=== PATIENT | female | born 1950 | race Caucasian/White ===

== ENCOUNTER 2016-07-03 13:44 | Inpatient (IN) | payer MEDICARE, OTHER ==
[~2016-07-03] VITALS: Ht 167.6 cm; Wt 87.5 kg
[~2016-07-03 13:44] MED LIST: 0.92DISP2 IV; CEFA2PIG3 IVPB; DIAZ5TAB4 IV; DOCU-30 PO; ENOX40SY4 SQ; GABA100C PO; GUAI5LIQ3 PO; HYDR20VI3 IV; IBUP-1222 PO; LABE5VIA13 IVPush; LACT1CAP24 PO; LISI-167 PO; METH750T2 PO; MORP15TA3 PO; OLAN5TAB3 PO; ONDA2VIA2 IVPush; OXYC5CAP4 PO; POLY17PO5 PO; SENN-31 PO; TRAM50TA2 PO; [UNRECOGNIZED DRUG - CODE] IVPush
[2016-07-03] MEDS ORDERED: SODIUM CHLORIDE FLUSH 10ML SYR IVF ONE (14:00)
[2016-07-03] MEDS ORDERED: ACET325T26 PO (14:02)
[2016-07-03] MEDS ORDERED: AMLO10TA2 PO (14:02)
[2016-07-03] MEDS ORDERED: META800T PO (14:02)
[2016-07-03] MEDS ORDERED: OXYC5TAB3 PO (14:02)
[2016-07-03] MEDS ORDERED: OLAN10TA9 PO (14:02)
[2016-07-03] MEDS ORDERED: CLON0.1T PO (14:02)
[2016-07-03] MEDS ORDERED: GABA100C8 PO (14:02)
[2016-07-03] MEDS ORDERED: LISI-170 PO (14:02)
[2016-07-03] MEDS ORDERED: CEPH-376 PO (14:02)
[2016-07-03] MEDS ORDERED: MORP15TA39 PO (14:02)
[2016-07-03 15:00] LABS: BLOOD UREA NITROGEN 10 mg/dL (7-18)
[2016-07-03] MEDS ORDERED: SODIUM CHLORIDE FLUSH 10ML SYR IVF PRN (19:00)
[2016-07-03] MEDS ORDERED: LABETALOL 5MG/ML, 20ML IV PRN (19:30)
[2016-07-03] MEDS ORDERED: BISACODYL 10 MG SUPP PR PRN (19:30)
[2016-07-03] MEDS ORDERED: ONDANSETRON 2MG/ML, 2ML IVP PRN (19:30)
[2016-07-03] MEDS ORDERED: Metaxalone** 800 MG HOMEMEDPO PRN (19:30)
[2016-07-03] MEDS ORDERED: POLYETHYLENE GLYCOL 17 GM PACKET PO PRN (19:30)
[2016-07-03] MEDS ORDERED: DOCUSATE 100 MG CAPSULE PO PRN (19:30)
[2016-07-03] MEDS ORDERED: LABETALOL 5MG/ML, 20ML ONE (19:59)
[2016-07-03] MEDS ORDERED: POTASSIUM CHLORIDE 20 MEQ TAB.ER.PRT PO ONE (22:00)
[2016-07-03 22:22] VITALS: BP 198/68
[2016-07-03 22:52] VITALS: BP 171/87
[2016-07-03] MEDS: GABAPENTIN 100 MG CAPSULE PO SCH (22:52)
[2016-07-03] MEDS: LISINOPRIL 20 MG TABLET PO SCH (22:53)
[2016-07-03] MEDS: NS + 20MEQ KCL 1,000 ML IV SCH (23:17)
[2016-07-04 02:25] VITALS: BP 114/63
[2016-07-04] MEDS ORDERED: CEFTRIAXONE PMX 1GM/50ML 50 ML IV SCH (04:00)
[2016-07-04 05:25] VITALS: BP 118/64
[2016-07-04 06:09] LABS: ASPARTATE AMINO TRANSFERASE 20 U/L (15-37); BLOOD UREA NITROGEN 15 mg/dL (7-18)
[2016-07-04 07:46] VITALS: BP 103/64
[2016-07-04] MEDS: AMLODIPINE 5 MG TABLET PO SCH (08:12)
[2016-07-04] MEDS: LISINOPRIL 20 MG TABLET PO SCH ×2 (08:13→21:23)
[2016-07-04] MEDS: OLANZAPINE 10 MG TABLET PO SCH (08:24)
[2016-07-04] MEDS: NS + 20MEQ KCL 1,000 ML IV SCH ×2 (08:24→21:23)
[2016-07-04] MEDS: GABAPENTIN 100 MG CAPSULE PO SCH ×3 (08:24→21:25)
[2016-07-04] MEDS: OXYcodone IR 5MG TABLET PO PRN (11:33)
[2016-07-04] MEDS ORDERED: LIDOCAINE 1%, 20ML ONE (13:07)
[2016-07-04 13:10] VITALS: BP 112/67
[2016-07-04] MEDS ORDERED: FENTANYL PF 100 MCG/2ML ONE ×2 (13:19→13:20)
[2016-07-04] MEDS ORDERED: MIDAZOLAM 1 MG/ML, 5ML ONE (13:19)
[2016-07-04] MEDS ORDERED: SODIUM CHLORIDE 0.9%, 500ML IVBOLUS ONE (16:30)
[2016-07-04 18:15] VITALS: BP 178/78
[2016-07-04] MEDS: hydrALAzine 20 MG/ML, 1ML IV PRN (18:20)
[2016-07-04 19:40] LABS: OCCBLD OBC PASS
[2016-07-04 20:03] VITALS: BP 153/78
[2016-07-05 00:57] VITALS: BP 139/78
[2016-07-05 05:43] LABS: BLOOD UREA NITROGEN 15 mg/dL (7-18)
[2016-07-05] MEDS: OXYcodone IR 5MG TABLET PO PRN ×3 (05:44→19:58)
[2016-07-05 06:35] VITALS: BP 172/78
[2016-07-05] MEDS: ACETAMINOPHEN 325 MG TABLET PO PRN ×2 (06:38→14:42)
[2016-07-05] MEDS: NS + 20MEQ KCL 1,000 ML IV SCH (07:00)
[2016-07-05] MEDS: GABAPENTIN 100 MG CAPSULE PO SCH ×3 (08:01→19:58)
[2016-07-05] MEDS: LISINOPRIL 20 MG TABLET PO SCH ×2 (08:01→19:58)
[2016-07-05] MEDS: OLANZAPINE 10 MG TABLET PO SCH (08:01)
[2016-07-05] MEDS: PANTOPRAZOLE 40 MG IV IVPush SCH ×2 (08:01→19:58)
[2016-07-05] MEDS: AMLODIPINE 5 MG TABLET PO SCH (08:01)
[2016-07-05 13:41] VITALS: BP 156/75
[2016-07-05 18:50] VITALS: BP 178/83
[2016-07-06 00:27] VITALS: BP 159/72
[2016-07-06] MEDS: OXYcodone IR 5MG TABLET PO PRN ×4 (01:19→18:34)
[2016-07-06 05:16] LABS: BLOOD UREA NITROGEN 8 mg/dL (7-18)
[2016-07-06 06:35] VITALS: BP 184/93
[2016-07-06] MEDS: LISINOPRIL 20 MG TABLET PO SCH ×2 (07:28→19:35)
[2016-07-06] MEDS: GABAPENTIN 100 MG CAPSULE PO SCH ×3 (07:28→19:35)
[2016-07-06] MEDS: AMLODIPINE 5 MG TABLET PO SCH (07:28)
[2016-07-06] MEDS: OLANZAPINE 10 MG TABLET PO SCH (07:29)
[2016-07-06] MEDS: PANTOPRAZOLE 40 MG IV IVPush SCH ×2 (07:29→19:34)
[2016-07-06 13:25] VITALS: BP 160/76
[2016-07-06 18:51] VITALS: BP 181/70
[2016-07-07 00:59] VITALS: BP 154/71
[2016-07-07] MEDS: OXYcodone IR 5MG TABLET PO PRN ×3 (03:20→17:52)
[2016-07-07] MEDS ORDERED: POTASSIUM CHLORIDE 20 MEQ TAB.ER.PRT PO ONE (07:00)
[2016-07-07 07:40] VITALS: BP 172/77
[2016-07-07] MEDS: PANTOPRAZOLE 40 MG IV IVPush SCH ×2 (08:26→19:54)
[2016-07-07] MEDS: LISINOPRIL 20 MG TABLET PO SCH ×2 (08:27→19:54)
[2016-07-07] MEDS: GABAPENTIN 100 MG CAPSULE PO SCH ×3 (08:27→19:54)
[2016-07-07] MEDS: AMLODIPINE 5 MG TABLET PO SCH (08:27)
[2016-07-07] MEDS: OLANZAPINE 10 MG TABLET PO SCH (11:31)
[2016-07-07 13:37] VITALS: BP 171/79
[2016-07-07 19:43] VITALS: BP 182/73
[2016-07-07] MEDS ORDERED: LABETALOL 20 MG/4 ML IV PRN (19:56)
[2016-07-07 20:34] VITALS: BP 191/78
[2016-07-08 01:52] VITALS: BP 157/74
[2016-07-08 06:24] LABS: ASPARTATE AMINO TRANSFERASE 25 U/L (15-37); BLOOD UREA NITROGEN 12 mg/dL (7-18); C-REACTIVE PROTEIN, QUANT 0.54 mg/dL (0.02-0.49)
[2016-07-08 08:02] VITALS: BP 173/85
[2016-07-08] MEDS: OLANZAPINE 10 MG TABLET PO SCH (08:37)
[2016-07-08] MEDS: LISINOPRIL 20 MG TABLET PO SCH ×2 (08:37→20:50)
[2016-07-08] MEDS: AMLODIPINE 5 MG TABLET PO SCH (08:38)
[2016-07-08] MEDS: PANTOPRAZOLE 40 MG IV IVPush SCH ×2 (08:38→20:50)
[2016-07-08] MEDS: GABAPENTIN 100 MG CAPSULE PO SCH ×3 (08:38→20:50)
[2016-07-08] MEDS: OXYcodone IR 5MG TABLET PO PRN ×3 (08:38→20:50)
[2016-07-08] MEDS: METOPROLOL SUCCINATE 25 MG TAB.ER.24H PO SCH (11:21)
[2016-07-08 11:26] VITALS: BP 132/75
[2016-07-08 13:41] VITALS: BP 132/75
[2016-07-08 14:38] VITALS: BP 140/80
[2016-07-08 19:25] VITALS: BP 145/76
[2016-07-09] MEDS: OXYcodone IR 5MG TABLET PO PRN ×4 (01:28→18:15)
[2016-07-09 01:49] VITALS: BP 123/66
[2016-07-09] MEDS: METOPROLOL SUCCINATE 25 MG TAB.ER.24H PO SCH (06:07)
[2016-07-09 07:10] VITALS: BP 153/83
[2016-07-09] MEDS: OLANZAPINE 10 MG TABLET PO SCH (08:34)
[2016-07-09] MEDS: PANTOPRAZOLE 40 MG IV IVPush SCH ×2 (08:34→20:28)
[2016-07-09] MEDS: GABAPENTIN 100 MG CAPSULE PO SCH ×3 (08:35→20:28)
[2016-07-09] MEDS: LISINOPRIL 20 MG TABLET PO SCH ×2 (08:35→20:29)
[2016-07-09] MEDS: AMLODIPINE 5 MG TABLET PO SCH (08:35)
[2016-07-09 12:32] VITALS: BP 132/68
[2016-07-09 13:01] VITALS: BP 128/80
[2016-07-09 19:03] VITALS: BP 146/74
[2016-07-10] MEDS: SODIUM CHLORIDE 0.9% 1,000 ML IV SCH ×2 (00:21→21:24)
[2016-07-10 02:50] VITALS: BP 142/72
[2016-07-10] MEDS: METOPROLOL SUCCINATE 25 MG TAB.ER.24H PO SCH (05:32)
[2016-07-10 06:46] LABS: BLOOD UREA NITROGEN 18 mg/dL (7-18)
[2016-07-10] MEDS ORDERED: THROMBIN 5,000 UNIT VIAL TP ONE (06:58)
[2016-07-10] MEDS ORDERED: BUPIVACAINE/PF-EPI 0.25% 1:200K ONE (06:58)
[2016-07-10] MEDS ORDERED: BACITRACIN OINT 500U/GM, 15 GM ONE (06:58)
[2016-07-10] MEDS ORDERED: BACITRACIN 50,000 UNIT ONE (06:58)
[2016-07-10] MEDS: PANTOPRAZOLE 40 MG IV IVPush SCH ×2 (07:53→21:06)
[2016-07-10] MEDS: LISINOPRIL 20 MG TABLET PO SCH ×2 (07:59→21:17)
[2016-07-10] MEDS: OLANZAPINE 10 MG TABLET PO SCH (07:59)
[2016-07-10 08:00] VITALS: BP 151/71
[2016-07-10] MEDS: AMLODIPINE 5 MG TABLET PO SCH (08:00)
[2016-07-10] MEDS: GABAPENTIN 100 MG CAPSULE PO SCH ×3 (08:01→21:17)
[2016-07-10] MEDS: OXYcodone IR 5MG TABLET PO PRN (10:08)
[2016-07-10] MEDS ORDERED: FENTANYL PF 250 MCG/5ML ONE (10:55)
[2016-07-10] MEDS ORDERED: MIDAZOLAM 1 MG/ML, 2ML ONE (10:55)
[2016-07-10] MEDS ORDERED: DEXAMETHASONE 4 MG/ML, 1ML ONE (11:27)
[2016-07-10] MEDS ORDERED: EPHEDRINE 50 MG/ML, 1ML ONE (11:27)
[2016-07-10] MEDS ORDERED: CEFAZOLIN 1,000 MG ONE (11:27)
[2016-07-10] MEDS ORDERED: PROPOFOL 10 MG/ML, 20ML ONE (11:27)
[2016-07-10] MEDS ORDERED: ROCURONIUM 10 MG/ML ONE (11:27)
[2016-07-10] MEDS ORDERED: ONDANSETRON 2MG/ML, 2ML ONE (11:27)
[2016-07-10] MEDS ORDERED: PHENYLEPHRINE 10 MG/ML ONE (11:27)
[2016-07-10] MEDS ORDERED: HYDROmorphone 2 MG/ML, 1ML ONE (12:00)
[2016-07-10] MEDS ORDERED: ACETAMINOPHEN 325 MG TABLET PO PRN (13:00)
[2016-07-10] MEDS ORDERED: ONDANSETRON 2MG/ML, 2ML IVPush PRN ×2 (13:00→13:30)
[2016-07-10] MEDS ORDERED: METOCLOPRAMIDE 5 MG/ML, 2ML IV PRN (13:00)
[2016-07-10] MEDS ORDERED: MEPERIDINE/PF 25MG/0.5ML IVPush PRN (13:00)
[2016-07-10] MEDS ORDERED: OXYcodone 5 MG/5 ML ORAL.SOL UDC PO PRN (13:00)
[2016-07-10] MEDS ORDERED: FENTANYL PF 100 MCG/2ML IV PRN (13:00)
[2016-07-10] MEDS ORDERED: PROMETHAZINE 25 MG/ML, 1ML IV PRN (13:00)
[2016-07-10] MEDS ORDERED: hydrALAzine 20 MG/ML, 1ML IV PRN (13:00)
[2016-07-10] MEDS ORDERED: MIDAZOLAM 1 MG/ML, 2ML IV PRN (13:00)
[2016-07-10] MEDS ORDERED: HYDROmorphone 1 MG/ML, 1ML IV PRN (13:00)
[2016-07-10] MEDS ORDERED: LABETALOL 5MG/ML, 20ML IV PRN (13:00)
[2016-07-10] MEDS ORDERED: PHARMACY MAY ADJ FOR RENAL FX MC PRN (13:30)
[2016-07-10] MEDS ORDERED: HYDROmorphone PCA 30 MG/30 ML IV PRN (13:30)
[2016-07-10 15:15] VITALS: BP 161/74
[2016-07-10] MEDS: NS + 20MEQ KCL 1,000 ML IV SCH (17:01)
[2016-07-10] MEDS: NAFCILLIN 2 GM in DEXTROSE 5% 100 ML IV SCH ×2 (17:39→21:06)
[2016-07-10 19:35] VITALS: BP 156/70
[2016-07-10] MEDS: CEFAZOLIN PMX 2GM/50ML 50 ML IVPB SCH (20:12)
[2016-07-10] MEDS: SODIUM CHLORIDE FLUSH 10ML SYR IVF SCH (21:06)
[2016-07-10] MEDS: RIFAMPIN 300 MG CAPSULE PO SCH (21:17)
[2016-07-11 00:19] VITALS: BP 134/72
[2016-07-11] MEDS: SODIUM CHLORIDE 0.9% 1,000 ML IV SCH ×3 (02:40→16:00)
[2016-07-11] MEDS: NAFCILLIN 2 GM in DEXTROSE 5% 100 ML IV SCH ×5 (02:49→20:22)
[2016-07-11] MEDS: OXYcodone IR 5MG TABLET PO PRN ×4 (03:23→19:04)
[2016-07-11 04:00] VITALS: BP 150/71
[2016-07-11] MEDS: CEFAZOLIN PMX 2GM/50ML 50 ML IVPB SCH (04:05)
[2016-07-11] MEDS: METOPROLOL SUCCINATE 25 MG TAB.ER.24H PO SCH (06:43)
[2016-07-11] MEDS: PANTOPRAZOLE 40 MG IV IVPush SCH (07:48)
[2016-07-11] MEDS: NS + 20MEQ KCL 1,000 ML IV SCH (08:00)
[2016-07-11] MEDS: GABAPENTIN 100 MG CAPSULE PO SCH ×3 (10:52→20:23)
[2016-07-11] MEDS: SODIUM CHLORIDE FLUSH 10ML SYR IVF SCH ×2 (10:52→20:23)
[2016-07-11] MEDS: AMLODIPINE 5 MG TABLET PO SCH (10:52)
[2016-07-11] MEDS: RIFAMPIN 300 MG CAPSULE PO SCH ×2 (10:53→20:24)
[2016-07-11] MEDS: OLANZAPINE 10 MG TABLET PO SCH (10:53)
[2016-07-11] MEDS: LISINOPRIL 20 MG TABLET PO SCH ×2 (10:53→20:24)
[2016-07-11] MEDS ORDERED: OXYcodone IR 5MG TABLET PO PRN (11:30)
[2016-07-11 13:08] VITALS: BP 149/66
[2016-07-11] MEDS ORDERED: LORazepam 2 MG/ML, 1ML ONE (13:40)
[2016-07-11] MEDS ORDERED: LORazepam 2 MG/ML, 1ML IVPush ONE (14:00)
[2016-07-11 15:25] VITALS: BP 117/70
[2016-07-11 20:12] VITALS: BP 124/57
[2016-07-12] MEDS: OXYcodone IR 5MG TABLET PO PRN ×5 (00:15→20:13)
[2016-07-12] MEDS: NAFCILLIN 2 GM in DEXTROSE 5% 100 ML IV SCH ×6 (00:20→19:57)
[2016-07-12 01:00] VITALS: BP 142/76
[2016-07-12] MEDS ORDERED: morphine SULFATE 10 MG/ML, 1ML IVPush PRN (02:00)
[2016-07-12] MEDS ORDERED: ZIPRASIDONE 20 MG INJ IM ONE (03:00)
[2016-07-12] MEDS: SODIUM CHLORIDE 0.9% 1,000 ML IV SCH ×3 (05:26→14:00)
[2016-07-12] MEDS: METOPROLOL SUCCINATE 25 MG TAB.ER.24H PO SCH (06:45)
[2016-07-12 07:33] VITALS: BP 170/86
[2016-07-12] MEDS: RIFAMPIN 300 MG CAPSULE PO SCH ×2 (07:44→21:00)
[2016-07-12] MEDS: AMLODIPINE 5 MG TABLET PO SCH (07:45)
[2016-07-12] MEDS: OLANZAPINE 10 MG TABLET PO SCH (07:45)
[2016-07-12] MEDS: LISINOPRIL 20 MG TABLET PO SCH ×2 (07:45→21:01)
[2016-07-12] MEDS: GABAPENTIN 100 MG CAPSULE PO SCH ×3 (07:45→20:58)
[2016-07-12] MEDS ORDERED: ZIPRASIDONE 20 MG INJ IM PRN (11:30)
[2016-07-12] MEDS: SODIUM CHLORIDE FLUSH 10ML SYR IVF SCH ×2 (11:56→21:00)
[2016-07-12 12:59] VITALS: BP 170/76
[2016-07-12] MEDS: LORazepam 2 MG/ML, 1ML IVPush PRN ×2 (15:48→21:59)
[2016-07-12 19:22] VITALS: BP 155/68
[2016-07-13] MEDS: SODIUM CHLORIDE 0.9% 1,000 ML IV SCH ×3 (00:14→16:31)
[2016-07-13] MEDS: NAFCILLIN 2 GM in DEXTROSE 5% 100 ML IV SCH ×6 (00:15→20:03)
[2016-07-13 03:17] VITALS: BP 136/60
[2016-07-13 05:52] LABS: BLOOD UREA NITROGEN 9 mg/dL (7-18)
[2016-07-13 06:47] VITALS: BP 143/69
[2016-07-13] MEDS: METOPROLOL SUCCINATE 25 MG TAB.ER.24H PO SCH (06:50)
[2016-07-13] MEDS: SODIUM CHLORIDE FLUSH 10ML SYR IVF SCH ×2 (08:44→21:00)
[2016-07-13] MEDS: OXYcodone IR 5MG TABLET PO PRN ×2 (08:48→22:11)
[2016-07-13] MEDS: RIFAMPIN 300 MG CAPSULE PO SCH ×2 (08:49→22:00)
[2016-07-13] MEDS: OLANZAPINE 10 MG TABLET PO SCH (08:50)
[2016-07-13] MEDS: AMLODIPINE 5 MG TABLET PO SCH (08:50)
[2016-07-13] MEDS: LISINOPRIL 20 MG TABLET PO SCH ×2 (08:50→22:00)
[2016-07-13] MEDS: GABAPENTIN 100 MG CAPSULE PO SCH ×3 (08:50→22:00)
[2016-07-13] MEDS: LORazepam 2 MG/ML, 1ML IVPush PRN ×2 (08:56→17:24)
[2016-07-13 14:57] VITALS: BP 172/77
[2016-07-13 21:05] VITALS: BP 185/81
[2016-07-13] MEDS: hydrALAzine 20 MG/ML, 1ML IV PRN (23:25)
[2016-07-13 23:27] VITALS: BP 183/81
[2016-07-14] VITALS: BP 152/58
[2016-07-14] MEDS: NAFCILLIN 2 GM in DEXTROSE 5% 100 ML IV SCH ×6 (00:08→22:12)
[2016-07-14] MEDS: SODIUM CHLORIDE 0.9% 1,000 ML IV SCH ×3 (04:12→21:43)
[2016-07-14] MEDS: METOPROLOL SUCCINATE 25 MG TAB.ER.24H PO SCH (06:50)
[2016-07-14] MEDS: SODIUM CHLORIDE FLUSH 10ML SYR IVF SCH ×2 (09:00→21:00)
[2016-07-14 09:52] VITALS: BP 171/82
[2016-07-14] MEDS: RIFAMPIN 300 MG CAPSULE PO SCH ×2 (10:05→21:44)
[2016-07-14] MEDS: GABAPENTIN 100 MG CAPSULE PO SCH ×3 (10:05→21:44)
[2016-07-14] MEDS: AMLODIPINE 5 MG TABLET PO SCH (10:05)
[2016-07-14] MEDS: OLANZAPINE 10 MG TABLET PO SCH (10:05)
[2016-07-14] MEDS: LISINOPRIL 20 MG TABLET PO SCH ×2 (10:05→21:43)
[2016-07-14] MEDS: POLYETHYLENE GLYCOL 17 GM PACKET PO SCH (13:25)
[2016-07-14 14:29] VITALS: BP 181/81
[2016-07-14] MEDS: hydrALAzine 20 MG/ML, 1ML IV PRN (14:46)
[2016-07-14 15:31] VITALS: BP 144/68
[2016-07-14] MEDS: POTASSIUM CHLORIDE 20 MEQ TAB.ER.PRT PO SCH ×2 (15:34→17:36)
[2016-07-14] MEDS: OXYcodone IR 5MG TABLET PO PRN (17:36)
[2016-07-14 21:11] VITALS: BP 161/73
[2016-07-14] MEDS: DOCUSATE 100 MG CAPSULE PO SCH (21:44)
[2016-07-15] MEDS: NAFCILLIN 2 GM in DEXTROSE 5% 100 ML IV SCH ×5 (02:25→20:31)
[2016-07-15 04:53] VITALS: BP 172/86
[2016-07-15 06:11] LABS: ASPARTATE AMINO TRANSFERASE 23 U/L (15-37); BLOOD UREA NITROGEN 9 mg/dL (7-18)
[2016-07-15] MEDS: METOPROLOL SUCCINATE 25 MG TAB.ER.24H PO SCH (06:54)
[2016-07-15 06:55] VITALS: BP 179/83
[2016-07-15] MEDS: POLYETHYLENE GLYCOL 17 GM PACKET PO SCH (08:44)
[2016-07-15 08:46] VITALS: BP 206/93
[2016-07-15] MEDS: DOCUSATE 100 MG CAPSULE PO SCH ×2 (08:54→21:28)
[2016-07-15] MEDS: GABAPENTIN 100 MG CAPSULE PO SCH ×3 (08:54→21:27)
[2016-07-15] MEDS: AMLODIPINE 5 MG TABLET PO SCH (08:55)
[2016-07-15] MEDS: RIFAMPIN 300 MG CAPSULE PO SCH ×2 (08:55→21:28)
[2016-07-15] MEDS: LISINOPRIL 20 MG TABLET PO SCH ×2 (08:55→21:28)
[2016-07-15] MEDS: OLANZAPINE 10 MG TABLET PO SCH (08:55)
[2016-07-15] MEDS: SODIUM CHLORIDE FLUSH 10ML SYR IVF SCH ×2 (08:56→21:28)
[2016-07-15] MEDS: hydrALAzine 20 MG/ML, 1ML IV PRN (08:56)
[2016-07-15] MEDS: SODIUM CHLORIDE 0.9% 1,000 ML IV SCH (08:56)
[2016-07-15] MEDS: OXYcodone IR 5MG TABLET PO PRN (15:52)
[2016-07-15 16:00] VITALS: BP 172/80
[2016-07-15 20:06] VITALS: BP 178/74
[2016-07-16] MEDS: NAFCILLIN 2 GM in DEXTROSE 5% 100 ML IV SCH ×6 (00:28→20:18)
[2016-07-16 02:19] VITALS: BP 193/72
[2016-07-16 04:48] LABS: BLOOD UREA NITROGEN 7 mg/dL (7-18)
[2016-07-16 08:00] VITALS: BP 194/68
[2016-07-16] MEDS: POLYETHYLENE GLYCOL 17 GM PACKET PO SCH (09:00)
[2016-07-16] MEDS: DOCUSATE 100 MG CAPSULE PO SCH ×2 (09:00→20:18)
[2016-07-16] MEDS: GABAPENTIN 100 MG CAPSULE PO SCH ×3 (09:10→20:18)
[2016-07-16] MEDS: METOPROLOL SUCCINATE 50 MG TAB.ER.24H PO SCH (09:10)
[2016-07-16] MEDS: RIFAMPIN 300 MG CAPSULE PO SCH ×2 (09:10→20:18)
[2016-07-16] MEDS: LISINOPRIL 20 MG TABLET PO SCH ×2 (09:11→20:18)
[2016-07-16] MEDS: OLANZAPINE 10 MG TABLET PO SCH (09:11)
[2016-07-16] MEDS: SODIUM CHLORIDE FLUSH 10ML SYR IVF SCH ×2 (09:11→20:18)
[2016-07-16] MEDS: AMLODIPINE 5 MG TABLET PO SCH (09:11)
[2016-07-16 14:03] VITALS: BP 169/71
[2016-07-16] MEDS ORDERED: POTASSIUM CHLORIDE 40 MEQ in SODIUM CHLORIDE 0.9% 500 ML IV ONE (16:30)
[2016-07-16 19:43] VITALS: BP 180/84
[2016-07-16] MEDS: OXYcodone IR 5MG TABLET PO PRN (20:19)
[2016-07-17] MEDS: NAFCILLIN 2 GM in DEXTROSE 5% 100 ML IV SCH ×6 (00:42→21:30)
[2016-07-17] MEDS: OXYcodone IR 5MG TABLET PO PRN ×4 (00:42→20:03)
[2016-07-17 01:49] VITALS: BP 142/69
[2016-07-17 06:25] LABS: BLOOD UREA NITROGEN 8 mg/dL (7-18)
[2016-07-17] MEDS ORDERED: POTASSIUM CHLORIDE 40 MEQ in SODIUM CHLORIDE 0.9% 500 ML IV ONE (07:00)
[2016-07-17 08:00] VITALS: BP 197/81
[2016-07-17] MEDS: SODIUM CHLORIDE FLUSH 10ML SYR IVF SCH ×2 (08:36→21:00)
[2016-07-17] MEDS: GABAPENTIN 100 MG CAPSULE PO SCH ×3 (08:51→21:31)
[2016-07-17] MEDS: POLYETHYLENE GLYCOL 17 GM PACKET PO SCH (08:51)
[2016-07-17] MEDS: DOCUSATE 100 MG CAPSULE PO SCH ×2 (08:51→21:31)
[2016-07-17] MEDS: LISINOPRIL 20 MG TABLET PO SCH ×2 (08:51→21:31)
[2016-07-17] MEDS: AMLODIPINE 5 MG TABLET PO SCH (08:51)
[2016-07-17] MEDS: RIFAMPIN 300 MG CAPSULE PO SCH ×2 (08:51→21:31)
[2016-07-17] MEDS: METOPROLOL SUCCINATE 50 MG TAB.ER.24H PO SCH (08:52)
[2016-07-17] MEDS: OLANZAPINE 10 MG TABLET PO SCH (08:52)
[2016-07-17] MEDS: hydrALAzine 20 MG/ML, 1ML IV PRN ×2 (08:52→14:18)
[2016-07-17 14:00] VITALS: BP 187/76
[2016-07-17] MEDS: POTASSIUM CHLORIDE 20 MEQ TAB.ER.PRT PO SCH (15:57)
[2016-07-17 16:04] VITALS: BP 159/71
[2016-07-17 20:11] VITALS: BP 164/76
[2016-07-18] MEDS: NAFCILLIN 2 GM in DEXTROSE 5% 100 ML IV SCH ×5 (02:07→21:31)
[2016-07-18 02:27] VITALS: BP 148/67
[2016-07-18 06:12] LABS: BLOOD UREA NITROGEN 12 mg/dL (7-18)
[2016-07-18 08:00] VITALS: BP 159/69
[2016-07-18] MEDS ORDERED: POTASSIUM CHLORIDE 40 MEQ in SODIUM CHLORIDE 0.9% 500 ML IV ONE (10:00)
[2016-07-18] MEDS: GABAPENTIN 100 MG CAPSULE PO SCH ×3 (10:06→21:31)
[2016-07-18] MEDS: AMLODIPINE 5 MG TABLET PO SCH (10:06)
[2016-07-18] MEDS: RIFAMPIN 300 MG CAPSULE PO SCH ×2 (10:07→21:31)
[2016-07-18] MEDS: POTASSIUM CHLORIDE 20 MEQ TAB.ER.PRT PO SCH ×2 (10:07→15:50)
[2016-07-18] MEDS: LISINOPRIL 20 MG TABLET PO SCH ×2 (10:07→21:31)
[2016-07-18] MEDS: DOCUSATE 100 MG CAPSULE PO SCH ×2 (10:07→21:00)
[2016-07-18] MEDS: OLANZAPINE 10 MG TABLET PO SCH (10:08)
[2016-07-18] MEDS: SODIUM CHLORIDE FLUSH 10ML SYR IVF SCH ×2 (10:08→21:00)
[2016-07-18] MEDS: METOPROLOL SUCCINATE 50 MG TAB.ER.24H PO SCH (10:08)
[2016-07-18 14:00] VITALS: BP 184/81
[2016-07-18 14:40] VITALS: BP 184/81
[2016-07-18] MEDS: hydrALAzine 20 MG/ML, 1ML IV PRN (14:45)
[2016-07-18 19:48] VITALS: BP 160/69
[2016-07-19] MEDS: NAFCILLIN 2 GM in DEXTROSE 5% 100 ML IV SCH ×6 (01:15→21:43)
[2016-07-19 03:10] VITALS: BP 121/65
[2016-07-19 05:21] LABS: BLOOD UREA NITROGEN 9 mg/dL (7-18)
[2016-07-19] MEDS: METOPROLOL SUCCINATE 50 MG TAB.ER.24H PO SCH (09:35)
[2016-07-19] MEDS: RIFAMPIN 300 MG CAPSULE PO SCH ×2 (09:35→20:50)
[2016-07-19] MEDS: OLANZAPINE 10 MG TABLET PO SCH (09:35)
[2016-07-19] MEDS: LISINOPRIL 20 MG TABLET PO SCH ×2 (09:35→20:50)
[2016-07-19] MEDS: GABAPENTIN 100 MG CAPSULE PO SCH ×3 (09:36→20:51)
[2016-07-19] MEDS: SODIUM CHLORIDE FLUSH 10ML SYR IVF SCH ×2 (09:36→20:51)
[2016-07-19] MEDS: AMLODIPINE 5 MG TABLET PO SCH (09:36)
[2016-07-19] MEDS: DOCUSATE 100 MG CAPSULE PO SCH ×2 (09:36→20:51)
[2016-07-19] MEDS: POTASSIUM CHLORIDE 20 MEQ TAB.ER.PRT PO SCH ×2 (09:36→17:20)
[2016-07-19 13:35] VITALS: BP 127/68
[2016-07-19 19:36] VITALS: BP 159/72
[2016-07-20 00:51] VITALS: BP 154/68
[2016-07-20] MEDS: NAFCILLIN 2 GM in DEXTROSE 5% 100 ML IV SCH ×6 (01:39→21:24)
[2016-07-20 03:24] LABS: BLOOD UREA NITROGEN 7 mg/dL (7-18)
[2016-07-20 06:34] VITALS: BP 177/70
[2016-07-20] MEDS: DOCUSATE 100 MG CAPSULE PO SCH (07:13)
[2016-07-20] MEDS: SODIUM CHLORIDE FLUSH 10ML SYR IVF SCH ×2 (09:55→21:27)
[2016-07-20] MEDS: POTASSIUM CHLORIDE 20 MEQ TAB.ER.PRT PO SCH ×2 (09:55→17:30)
[2016-07-20] MEDS: AMLODIPINE 5 MG TABLET PO SCH (09:56)
[2016-07-20] MEDS: GABAPENTIN 100 MG CAPSULE PO SCH ×3 (09:56→21:24)
[2016-07-20] MEDS: LISINOPRIL 20 MG TABLET PO SCH ×2 (09:56→21:24)
[2016-07-20] MEDS: RIFAMPIN 300 MG CAPSULE PO SCH ×2 (09:57→21:24)
[2016-07-20] MEDS: METOPROLOL SUCCINATE 50 MG TAB.ER.24H PO SCH (09:57)
[2016-07-20] MEDS: OLANZAPINE 10 MG TABLET PO SCH (09:57)
[2016-07-20] MEDS ORDERED: LOPERAMIDE 2 MG CAPSULE PO PRN (13:00)
[2016-07-20 13:31] VITALS: BP 203/80
[2016-07-20] MEDS: hydrALAzine 20 MG/ML, 1ML IV PRN (13:34)
[2016-07-20] MEDS: METOPROLOL TARTRATE 50 MG TABLET PO SCH (17:30)
[2016-07-20 18:46] VITALS: BP 149/57
[2016-07-21] MEDS: NAFCILLIN 2 GM in DEXTROSE 5% 100 ML IV SCH ×5 (00:57→19:32)
[2016-07-21 01:55] VITALS: BP 129/54
[2016-07-21] MEDS: METOPROLOL TARTRATE 50 MG TABLET PO SCH ×2 (06:22→18:02)
[2016-07-21 07:45] VITALS: BP 148/63
[2016-07-21] MEDS: OLANZAPINE 10 MG TABLET PO SCH (08:30)
[2016-07-21] MEDS: RIFAMPIN 300 MG CAPSULE PO SCH ×2 (08:30→21:50)
[2016-07-21] MEDS: GABAPENTIN 100 MG CAPSULE PO SCH ×3 (08:30→21:49)
[2016-07-21] MEDS: LISINOPRIL 20 MG TABLET PO SCH ×2 (08:30→21:50)
[2016-07-21] MEDS: POTASSIUM CHLORIDE 20 MEQ TAB.ER.PRT PO SCH ×2 (08:31→15:31)
[2016-07-21] MEDS: AMLODIPINE 5 MG TABLET PO SCH (08:31)
[2016-07-21] MEDS: SODIUM CHLORIDE FLUSH 10ML SYR IVF SCH ×2 (08:31→21:49)
[2016-07-21 14:19] VITALS: BP 120/63
[2016-07-21 18:03] VITALS: BP 163/68
[2016-07-21 20:04] VITALS: BP 162/67
[2016-07-22] MEDS: NAFCILLIN 2 GM in DEXTROSE 5% 100 ML IV SCH ×5 (00:10→15:41)
[2016-07-22 02:53] VITALS: BP 138/60
[2016-07-22 06:14] LABS: ASPARTATE AMINO TRANSFERASE 14 U/L (15-37); BLOOD UREA NITROGEN 10 mg/dL (7-18)
[2016-07-22] MEDS: METOPROLOL TARTRATE 50 MG TABLET PO SCH ×2 (06:34→17:10)
[2016-07-22 06:45] VITALS: BP 155/63
[2016-07-22] MEDS: GABAPENTIN 100 MG CAPSULE PO SCH ×2 (08:11→15:43)
[2016-07-22] MEDS: AMLODIPINE 5 MG TABLET PO SCH (08:11)
[2016-07-22] MEDS: SODIUM CHLORIDE FLUSH 10ML SYR IVF SCH (08:11)
[2016-07-22] MEDS: OLANZAPINE 10 MG TABLET PO SCH (08:11)
[2016-07-22] MEDS: POTASSIUM CHLORIDE 20 MEQ TAB.ER.PRT PO SCH ×2 (08:11→17:09)
[2016-07-22] MEDS: LISINOPRIL 20 MG TABLET PO SCH (08:11)
[2016-07-22] MEDS: RIFAMPIN 300 MG CAPSULE PO SCH (08:12)
[2016-07-22 13:02] VITALS: BP 143/70
[2016-07-22] MEDS ORDERED: POTA20TA6 PO (15:30)
[2016-07-22] MEDS ORDERED: GABA100C8 PO (15:30)
[2016-07-22] MEDS ORDERED: RIFA300C3 PO (15:30)
[2016-07-22] MEDS ORDERED: ZIPR20VI IM (15:30)
[2016-07-22] MEDS ORDERED: METO50TA82 PO (15:30)
[2016-07-22] MEDS ORDERED: NAFC2FRO IV (15:38)
== END 2016-07-22 19:30 | DRG 28 ==
LOC: ED 18:52 → EDIP 19:02 → 3NE 21:49 → EDIP 21:49 → 4NOR 07-10 14:52
PROC: 0QB03ZX Excision of Lumbar Vertebra, Percutaneous Approach, Diagnostic (ICD-10-PCS; 2016-07-04)
PROC: 009U0ZX Drainage of Spinal Canal, Open Approach, Diagnostic (ICD-10-PCS; 2016-07-04)
PROC: 00NY0ZZ Release Lumbar Spinal Cord, Open Approach (ICD-10-PCS; 2016-07-10)
PROC: 0SB20ZX Excision of Lumbar Vertebral Disc, Open Approach, Diagnostic (ICD-10-PCS; 2016-07-10)
PROC: 00NX0ZZ Release Thoracic Spinal Cord, Open Approach (ICD-10-PCS; principal; 2016-07-10 11:45)
PROC: 02HV33Z Insertion of Infusion Device into Superior Vena Cava, Percutaneous Approach (ICD-10-PCS; 2016-07-11)
PROC: B548ZZA Ultrasonography of Superior Vena Cava, Guidance (ICD-10-PCS; 2016-07-11)
DX: G06.1 Intraspinal abscess and granuloma (principal); N17.0 Acute kidney failure with tubular necrosis; N39.0 Urinary tract infection, site not specified; E44.0 Moderate protein-calorie malnutrition; M46.26 Osteomyelitis of vertebra, lumbar region; M46.24 Osteomyelitis of vertebra, thoracic region; M46.25 Osteomyelitis of vertebra, thoracolumbar region; I16.0 Hypertensive urgency; I11.9 Hypertensive heart disease without heart failure; D64.9 Anemia, unspecified; E87.6 Hypokalemia; R73.9 Hyperglycemia, unspecified; M46.46 Discitis, unspecified, lumbar region; F25.9 Schizoaffective disorder, unspecified; F91.9 Conduct disorder, unspecified; G89.29 Other chronic pain; M48.06 Spinal stenosis, lumbar region; R32 Unspecified urinary incontinence; R45.1 Restlessness and agitation; K59.00 Constipation, unspecified; R15.9 Full incontinence of feces; W19.XXXA Unspecified fall, initial encounter; Z68.31 Body mass index [BMI] 31.0-31.9, adult; Z86.14 Personal history of Methicillin resistant Staphylococcus aureus infection; Y92.009 Unspecified place in unspecified non-institutional (private) residence as the place of occurrence of the external cause; Z79.899 Other long term (current) drug therapy; Z82.0 Family history of epilepsy and other diseases of the nervous system; Z86.61 Personal history of infections of the central nervous system; Z91.19 Patient's noncompliance with other medical treatment and regimen; Z90.49 Acquired absence of other specified parts of digestive tract
CPT/HCPCS: 36415; 36569; 62267; 72100; 72158; 75989; 76937; 77001; 80048; 80053; 81001; 81003; 82040; 82272; 82962; 83605; 83735; 85025; 85610; 85651; 85730; 86140; 86141; 87015; 87040; 87070; 87075; 87077; 87086; 87102; 87116; 87176; 87186; 87205; 87206; 87324; 88304; 93970; 96374; 99156; 99157; J0690; J1100; J1170; J2250; J2405; J2704; J3010; J3480; J3486; J3490; C1751; C9113; J0360; J2060; J2270; J2370; J7030; J7040

== ENCOUNTER 2018-04-13 12:41 | Emergency (ER) | payer MEDICARE, OTHER ==
[~2018-04-13] VITALS: Ht 157.5 cm; Wt 68.5 kg
[~2018-04-13 12:41] MED LIST changes: +ACET325T26 PO; +AMLO10TA6 PO; +CEPH-376 PO; +CLON0.1T22 PO; +DOCU-131 PO; -DOCU-30 PO; +GABA-826 PO; +LISI-170 PO; +META800T PO; +METO50TA82 PO; +MORP-52 PO; +NAFC2FRO IV; +OLAN10TA9 PO; +OXYC5CAP2 PO; -OXYC5CAP4 PO; +OXYC5TAB3 PO; +POTA20TA6 PO; +RIFA300C3 PO; +ZIPR20VI IM; +[UNRECOGNIZED DRUG - CODE] IVPush; -[UNRECOGNIZED DRUG - CODE] IVPush
--- NOTE | 2018-04-13 12:55 | NUR ---
BIB [facility]. Found down at grocery store. Patient does not remember event. Hx syncope. A&Ox4 in ED. Denies all complaints. Placed on NIBP, pulse ox and cardiac cath rn.
--- NOTE | 2018-04-13 13:19 | NUR ---
Ambulated with a steady gait to the restroom.
[2018-04-13 13:54] LABS: MICROSCOPIC AUTO
[2018-04-13 14:07] LABS: CULTURE INDICATED? YES
[2018-04-13 14:08] LABS: BASOPHILS # (AUTO) 0.05 x10^3/uL (0-0.1); BASOPHILS % (AUTO) 1 % (0-1); EOSINOPHILS # (AUTO) 0.12 x10^3/uL (0-0.4); EOSINOPHILS % (AUTO) 1 % (1-7); LYMPHOCYTES # (AUTO) 1.53 x10^3/uL (1-3.4); LYMPHOCYTES % (AUTO) 16 % (22-44); MD NO; MEAN CORPUSCULAR HEMOGLOBIN 30.7 pg (27.0-34.8); MEAN CORPUSCULAR HGB CONC 33.9 g/dL (32.4-35.8); MEAN CORPUSCULAR VOLUME 90.5 fL (80-100); MEAN PLATELET VOLUME 10.9 fL (7.4-10.4); MONOCYTES # (AUTO) 0.88 x10^3/uL (0.2-0.8); MONOCYTES % (AUTO) 9 % (2-9); NEUTROPHILS # (AUTO) 7.28 x10^3/uL (1.8-6.8); NEUTROPHILS % (AUTO) 74 % (42-75); PLATELET COUNT 124 x10^3/uL (130-400); RED BLOOD COUNT 5.13 x10^6/uL (3.82-5.3); RED CELL DISTRIBUTION WIDTH 14.9 % (9.6-15.2)
[2018-04-13 14:13] LABS: ALBUMIN 3.8 g/dL (3.4-5.0); ANION GAP 6 mmol/L (5-15); CALCIUM 8.9 mg/dL (8.5-10.1); CHLORIDE 111 mmol/L (98-107); CREATININE 1.24 mg/dL (0.55-1.02)
[2018-04-13 14:15] LABS: TROPONIN I < 0.015 ng/mL (0.000-0.045)
[2018-04-13] MEDS ORDERED: SODIUM CHLORIDE 0.9%, 500ML IVBOLUS ONE (14:30)
--- NOTE | 2018-04-13 15:00 | NUR ---
1L NS hung. Remains hypertensive. NNo other needs
[2018-04-13] MEDS ORDERED: LORazepam 2 MG/ML, 1ML ONE (15:57)
[2018-04-13] MEDS ORDERED: LORazepam 2 MG/ML, 1ML IVPush ONE (16:00)
--- NOTE | 2018-04-13 16:11 | NUR ---
Ambulated with a steady gait to the restroom. No needs.
[2018-04-13] MEDS ORDERED: AMLODIPINE 5 MG TABLET ONE (16:51)
[2018-04-13] MEDS ORDERED: LABETALOL 20 MG/4 ML ONE (16:51)
[2018-04-13] MEDS ORDERED: AMLODIPINE 5 MG TABLET PO ONE (17:00)
[2018-04-13] MEDS ORDERED: LABETALOL 5MG/ML, 20ML IVPush ONE (17:00)
[2018-04-13 17:19] VITALS: BP 166/73
--- NOTE | 2018-04-13 17:20 | NUR ---
BP = 166/73, HR =70. MD updated.
--- NOTE | 2018-04-13 17:34 | NUR ---
called callie [phone] per pt request. pt lives with callie and will be waiting for her to arrive home
== END 2018-04-13 17:45 | disposition other institution (70) ==
LOC: ED 14:26
DX: I10 Essential (primary) hypertension (principal); E86.0 Dehydration; R55 Syncope and collapse; Z90.49 Acquired absence of other specified parts of digestive tract; F20.9 Schizophrenia, unspecified
CPT/HCPCS: 36415; 80048; 81001; 82040; 83735; 84484; 85025; 87086; 93005; 96361; 96374; 96375; 99284; J2060; J7040

== ENCOUNTER 2019-04-16 19:26 | Emergency (ER) | payer MEDICARE ==
[~2019-04-16] VITALS: Ht 165.1 cm; Wt 79.0 kg
[~2019-04-16 19:26] MED LIST changes: -AMLO10TA6 PO; +AMLO10TA8 PO; +MORP-29 PO; -MORP15TA3 PO
--- NOTE | 2019-04-16 19:43 | NUR ---
REPORT RECEIVED FROM LISY. ASSUMING CARE AT THIS TIME.
--- NOTE | 2019-04-16 20:27 | NUR ---
PT TAKEN TO IMAGING.
--- NOTE | 2019-04-16 20:35 | NUR ---
PT BACK FROM IMAGING.
[2019-04-16] MEDS ORDERED: LIDOCAINE 1%-EPI 1:100K, 20ML INFIL ONE (21:00)
[2019-04-16] MEDS ORDERED: LIDOCAINE 1%-EPI 1:100K, 20ML ONE (21:00)
[2019-04-16 21:03] VITALS: BP 166/66
--- NOTE | 2019-04-16 21:03 | NUR ---
XRAY DONE. LIDOCAINE PULLED FOR PROVIDER USE.
[2019-04-16] MEDS ORDERED: DIPH,PERTUSS(ACELL),TET VAC/PF 0.5 ML IM-VACC ONE ×2 (21:30→21:36)
== END 2019-04-16 21:56 | disposition home or self-care (01) ==
LOC: ED 21:15
DX: S01.81XA Laceration without foreign body of other part of head, initial encounter (principal); I10 Essential (primary) hypertension; Z90.89 Acquired absence of other organs; W01.0XXA Fall on same level from slipping, tripping and stumbling without subsequent striking against object, initial encounter; Y93.89 Activity, other specified; Y92.89 Other specified places as the place of occurrence of the external cause; Y99.8 Other external cause status
CPT/HCPCS: 12051; 90471; 90715; 99284

== ENCOUNTER 2019-04-25 23:11 | Inpatient (IN) | payer MEDICARE ==
[~2019-04-25] VITALS: Ht 157.5 cm; Wt 73.8 kg
--- NOTE | 2019-04-25 23:20 | NUR ---
PT BIB EMS. REPORTS PT LIVED AT PENDING SALE TO [facility] [address], SECURITY SAW PT MOSTLY NAKED CRAWLING UNDER A DESK IN HOTEL ROOM. PT AOX2, OF NAME AND LOCATION ON ARRIVAL TO ED. PT DENIES ANY MEDICAL COMPLAINTS. FRIEND REPORTS PT TAKES DILANTIN AND PHENOBARBITOL, BUT HAS BEEN NONCOMPLIANT, REPORTS PT HAS BEEN IN SEVERAL ASSISTED LIVING FACILITIES IN THE PAST INCLUDING MENTAL HEALTH FACILITIES. BS 99 PER EMS. PT CONNECTED TO ALL MONITORING, EKG PERFORMED ON ARRIVAL TO ED. CALL LIGHT WITHIN REACH, ALL SAFETY MEASURES IN PLACE.
--- NOTE | 2019-04-25 23:23 | NUR ---
EMERGENCY CONTACT FRIEND DEAWN CECILIA [phone]
[2019-04-25] MEDS ORDERED: SODIUM CHLORIDE 0.9% 1,000ML IVBOLUS ONE (23:30)
--- NOTE | 2019-04-25 23:54 | NUR ---
LAB COMPLETED BLOOD DRAW AND PT NOW AT IMAGING.
[2019-04-26] VITALS (8 sets, daily range): BP systolic 161–177; BP diastolic 79–94
[2019-04-26] LABS: BASOPHILS # (AUTO) 0.01 x10^3/uL (0-0.1); BASOPHILS % (AUTO) 0 % (0-1); EOSINOPHILS # (AUTO) 0.12 x10^3/uL (0-0.4); EOSINOPHILS % (AUTO) 1 % (1-7); LYMPHOCYTES # (AUTO) 1.29 x10^3/uL (1-3.4); LYMPHOCYTES % (AUTO) 16 % (22-44); MD NO; MEAN CORPUSCULAR HEMOGLOBIN 29.7 pg (27.0-34.8); MEAN CORPUSCULAR HGB CONC 33.6 g/dL (32.4-35.8); MEAN CORPUSCULAR VOLUME 88.3 fL (80-100); MEAN PLATELET VOLUME 10.6 fL (7.4-10.4); MONOCYTES # (AUTO) 0.84 x10^3/uL (0.2-0.8); MONOCYTES % (AUTO) 10 % (2-9); NEUTROPHILS # (AUTO) 6.01 x10^3/uL (1.8-6.8); NEUTROPHILS % (AUTO) 73 % (42-75); PLATELET COUNT 201 x10^3/uL (130-400); RED BLOOD COUNT 4.23 x10^6/uL (3.82-5.3); RED CELL DISTRIBUTION WIDTH 14.2 % (9.6-15.2)
[2019-04-26 00:10] LABS: ALBUMIN 2.9 g/dL (3.4-5.0); ANION GAP 9 mmol/L (5-15); CALCIUM 8.5 mg/dL (8.5-10.1); CHLORIDE 110 mmol/L (98-107)
[2019-04-26 00:11] LABS: SALICYLATE LEVEL < 1.7 mg/dL (2.8-20.0)
[2019-04-26 00:19] LABS: MICROSCOPIC NOT IND
[2019-04-26 00:22] LABS: CULTURE INDICATED? NO
[2019-04-26 00:27] LABS: ALANINE AMINOTRANSFERASE 30 U/L (12-78); ALKALINE PHOSPHATASE 111 U/L (45-117); BILIRUBIN,TOTAL 1.1 mg/dL (0.2-1.0); CREATININE 1.08 mg/dL (0.55-1.02); FREE T4 (FREE THYROXINE) 1.48 ng/dL (0.76-1.46); TOTAL PROTEIN 7.9 g/dL (6.4-8.2)
[2019-04-26] MEDS ORDERED: LORazepam 2 MG/ML, 1ML IVPush ONE (01:00)
[2019-04-26] MEDS ORDERED: POTASSIUM CHLORIDE 20 MEQ TAB.ER.PRT ONE (01:07)
[2019-04-26] MEDS ORDERED: ASPIRIN 325 MG TABLET ONE (01:07)
[2019-04-26] MEDS ORDERED: LORazepam 2 MG/ML, 1ML ONE (01:08)
[2019-04-26] MEDS ORDERED: POTASSIUM CHLORIDE 20 MEQ TAB.ER.PRT PO ONE (01:30)
[2019-04-26] MEDS ORDERED: ASPIRIN 325 MG TABLET PO ONE (01:30)
--- NOTE | 2019-04-26 01:43 | NUR ---
REPORT GIVEN TO LAYNE ERICKSON
[2019-04-26] MEDS ORDERED: ONDANSETRON 2MG/ML, 2ML IVPush PRN (02:00)
[2019-04-26 07:41] LABS: CHOL/HDL RATIO 3.9; LDL/HDL RATIO 2.4 (0.5-3.0)
[2019-04-26] MEDS ORDERED: ASPIRIN 81 MG TABLET CHEW PO/NG SCH (09:00)
[2019-04-26] MEDS ORDERED: ASPIRIN 300 MG SUPP PR SCH (09:00)
[2019-04-26 09:38] LABS: AMPHETAMINE SCREEN, URINE Negative (Negative); BARBITURATE SCREEN, URINE Negative (Negative); BENZODIAZEPINE SCREEN, URINE Negative (Negative); CANNABINOID SCREEN, URINE Negative (Negative); COCAINE SCREEN, URINE Negative (Negative); METHADONE SCREEN, URINE Negative (Negative); OPIATE SCREEN, URINE Negative (Negative)
[2019-04-26] MEDS ORDERED: OMNIPAQUE 350 MG/ML, 100ML BOTTLE ONE (16:27)
[2019-04-26] MEDS ORDERED: ATORVASTATIN 40 MG TABLET PO SCH (21:00)
[2019-04-27] VITALS (8 sets, daily range): BP systolic 149–191; BP diastolic 73–87
[2019-04-27 06:53] LABS: CHLORIDE 111 mmol/L (98-107)
[2019-04-27 07:19] LABS: ANION GAP 8 mmol/L (5-15); CALCIUM 8.3 mg/dL (8.5-10.1); CHOL/HDL RATIO 4.3; CHOLESTEROL, TOTAL 132 mg/dL (140-239); CREATININE 0.96 mg/dL (0.55-1.02); HDL CHOL % 23 % (28-40); HDL CHOLESTEROL (DIRECT) 31 mg/dL (40-60); LDL CHOLESTEROL,CALCULATED 81 mg/dL (54-169); LDL/HDL RATIO 2.6 (0.5-3.0); TRIGLYCERIDES 101 mg/dL (50-200); VLDL CHOLESTEROL 20 mg/dL (0-25)
[2019-04-27] MEDS ORDERED: ASPIRIN 300 MG SUPP PR SCH ×2 (09:00)
[2019-04-27] MEDS: CLOPIDOGREL 75 MG TABLET PO SCH (10:37)
[2019-04-27] MEDS: ASPIRIN 325 MG TABLET PO SCH (10:37)
[2019-04-27] MEDS ORDERED: MAGNESIUM SULFATE PMX 2GM/50ML 50 ML IV ONE (13:00)
[2019-04-27] MEDS ORDERED: CALCIUM GLUCONATE 4.6 MEQ in SODIUM CHLORIDE 0.9% 50 ML IV ONE (13:00)
[2019-04-27] MEDS ORDERED: POTASSIUM CHLORIDE 20 MEQ TAB.ER.PRT PO ONE (15:00)
[2019-04-27] MEDS: LISINOPRIL 10 MG TABLET PO SCH (21:36)
[2019-04-27] MEDS: ATORVASTATIN 80 MG TABLET PO SCH (21:36)
[2019-04-27] MEDS ORDERED: LISINOPRIL 10 MG TABLET PO ONE (23:00)
[2019-04-28] VITALS (10 sets, daily range): BP systolic 121–181; BP diastolic 71–95
[2019-04-28] MEDS ORDERED: LABETALOL 20 MG/4 ML IVPush ONE
[2019-04-28] MEDS: ASPIRIN 325 MG TABLET PO SCH (05:44)
[2019-04-28 06:12] LABS: BASOPHILS # (AUTO) 0.06 x10^3/uL (0-0.1); BASOPHILS % (AUTO) 1 % (0-1); EOSINOPHILS # (AUTO) 0.19 x10^3/uL (0-0.4); EOSINOPHILS % (AUTO) 3 % (1-7); LYMPHOCYTES # (AUTO) 1.31 x10^3/uL (1-3.4); LYMPHOCYTES % (AUTO) 17 % (22-44); MD NO; MEAN CORPUSCULAR HEMOGLOBIN 29.7 pg (27.0-34.8); MEAN CORPUSCULAR HGB CONC 33.7 g/dL (32.4-35.8); MEAN CORPUSCULAR VOLUME 87.9 fL (80-100); MEAN PLATELET VOLUME 11.1 fL (7.4-10.4); MONOCYTES # (AUTO) 0.67 x10^3/uL (0.2-0.8); MONOCYTES % (AUTO) 9 % (2-9); NEUTROPHILS # (AUTO) 5.37 x10^3/uL (1.8-6.8); NEUTROPHILS % (AUTO) 71 % (42-75); PLATELET COUNT 218 x10^3/uL (130-400); RED BLOOD COUNT 4.04 x10^6/uL (3.82-5.3); RED CELL DISTRIBUTION WIDTH 14.5 % (9.6-15.2)
[2019-04-28 06:17] LABS: CHLORIDE 113 mmol/L (98-107)
[2019-04-28 06:21] LABS: ALBUMIN 2.5 g/dL (3.4-5.0); ANION GAP 7 mmol/L (5-15); CREATININE 1.08 mg/dL (0.55-1.02)
[2019-04-28] MEDS: CLOPIDOGREL 75 MG TABLET PO SCH (08:40)
[2019-04-28] MEDS: LISINOPRIL 10 MG TABLET PO SCH ×2 (08:40→20:53)
[2019-04-28] MEDS: AMLODIPINE 10 MG TAB PO SCH (13:09)
[2019-04-28] MEDS ORDERED: POTASSIUM CHLORIDE 20 MEQ TAB.ER.PRT PO ONE (16:00)
[2019-04-28] MEDS: METOPROLOL TARTRATE 25 MG TAB PO SCH (17:11)
[2019-04-28] MEDS: ATORVASTATIN 80 MG TABLET PO SCH (20:53)
[2019-04-29] VITALS (9 sets, daily range): BP systolic 129–165; BP diastolic 74–85
[2019-04-29 05:28] LABS: ALBUMIN 2.6 g/dL (3.4-5.0); ANION GAP 7 mmol/L (5-15); CHLORIDE 114 mmol/L (98-107); CREATININE 1.11 mg/dL (0.55-1.02)
[2019-04-29 05:29] LABS: BASOPHILS # (AUTO) 0.04 x10^3/uL (0-0.1); BASOPHILS % (AUTO) 0 % (0-1); EOSINOPHILS # (AUTO) 0.26 x10^3/uL (0-0.4); EOSINOPHILS % (AUTO) 3 % (1-7); LYMPHOCYTES % (AUTO) 16 % (22-44); MD NO; MEAN CORPUSCULAR HEMOGLOBIN 29.6 pg (27.0-34.8); MEAN CORPUSCULAR HGB CONC 33.3 g/dL (32.4-35.8); MEAN CORPUSCULAR VOLUME 89.1 fL (80-100); MEAN PLATELET VOLUME 10.4 fL (7.4-10.4); MONOCYTES # (AUTO) 0.69 x10^3/uL (0.2-0.8); MONOCYTES % (AUTO) 7 % (2-9); NEUTROPHILS % (AUTO) 74 % (42-75); PLATELET COUNT 231 x10^3/uL (130-400); RED BLOOD COUNT 4.14 x10^6/uL (3.82-5.3); RED CELL DISTRIBUTION WIDTH 14.7 % (9.6-15.2)
[2019-04-29] MEDS: METOPROLOL TARTRATE 25 MG TAB PO SCH ×2 (05:45→17:07)
[2019-04-29] MEDS: ASPIRIN 81 MG TABLET CHEW PO SCH (05:45)
[2019-04-29] MEDS: CLOPIDOGREL 75 MG TABLET PO SCH (08:11)
[2019-04-29] MEDS: LISINOPRIL 10 MG TABLET PO SCH (08:11)
[2019-04-29] MEDS: AMLODIPINE 10 MG TAB PO SCH (08:12)
[2019-04-29] MEDS ORDERED: CALCIUM GLUCONATE 4.6 MEQ in SODIUM CHLORIDE 0.9% 50 ML IV ONE (09:00)
[2019-04-29] MEDS ORDERED: POTASSIUM PHOSPHATE 44 MEQ in SODIUM CHLORIDE 0.9% 500 ML IV ONE (09:00)
[2019-04-29] MEDS: ATORVASTATIN 80 MG TABLET PO SCH (20:19)
[2019-04-29] MEDS: LISINOPRIL 20 MG TABLET PO SCH (20:19)
[2019-04-30 00:41] VITALS: BP 148/71
[2019-04-30 01:14] VITALS: BP 150/79
[2019-04-30 04:26] VITALS: BP 147/72
[2019-04-30 05:06] LABS: BASOPHILS # (AUTO) 0.03 x10^3/uL (0-0.1); BASOPHILS % (AUTO) 0 % (0-1); EOSINOPHILS # (AUTO) 0.28 x10^3/uL (0-0.4); EOSINOPHILS % (AUTO) 3 % (1-7); LYMPHOCYTES # (AUTO) 1.56 x10^3/uL (1-3.4); LYMPHOCYTES % (AUTO) 14 % (22-44); MD NO; MEAN CORPUSCULAR HEMOGLOBIN 29.4 pg (27.0-34.8); MEAN CORPUSCULAR HGB CONC 33.3 g/dL (32.4-35.8); MEAN CORPUSCULAR VOLUME 88.2 fL (80-100); MEAN PLATELET VOLUME 10.7 fL (7.4-10.4); MONOCYTES % (AUTO) 7 % (2-9); NEUTROPHILS # (AUTO) 8.49 x10^3/uL (1.8-6.8); NEUTROPHILS % (AUTO) 76 % (42-75); PLATELET COUNT 245 x10^3/uL (130-400); RED BLOOD COUNT 4.36 x10^6/uL (3.82-5.3); RED CELL DISTRIBUTION WIDTH 14.9 % (9.6-15.2)
[2019-04-30 05:17] LABS: CHLORIDE 114 mmol/L (98-107)
[2019-04-30 05:24] LABS: ALBUMIN 2.8 g/dL (3.4-5.0); ANION GAP 7 mmol/L (5-15); CALCIUM 8.3 mg/dL (8.5-10.1); CREATININE 0.94 mg/dL (0.55-1.02)
[2019-04-30] MEDS: ASPIRIN 81 MG TABLET CHEW PO SCH (05:48)
[2019-04-30] MEDS: METOPROLOL TARTRATE 25 MG TAB PO SCH ×2 (05:48→17:38)
[2019-04-30 06:48] VITALS: BP 136/79
[2019-04-30] MEDS: CLOPIDOGREL 75 MG TABLET PO SCH (08:43)
[2019-04-30] MEDS: LISINOPRIL 20 MG TABLET PO SCH ×2 (08:43→20:19)
[2019-04-30] MEDS: AMLODIPINE 10 MG TAB PO SCH (08:43)
[2019-04-30 12:06] VITALS: BP 136/80
[2019-04-30 19:26] VITALS: BP 138/75
[2019-04-30] MEDS: ATORVASTATIN 80 MG TABLET PO SCH (20:18)
[2019-05-01 00:49] VITALS: BP 145/75
[2019-05-01] MEDS: ASPIRIN 81 MG TABLET CHEW PO SCH (06:24)
[2019-05-01] MEDS: METOPROLOL TARTRATE 25 MG TAB PO SCH (06:24)
[2019-05-01 06:32] VITALS: BP 152/78
[2019-05-01] MEDS: LISINOPRIL 20 MG TABLET PO SCH ×2 (09:17→20:36)
[2019-05-01] MEDS: CLOPIDOGREL 75 MG TABLET PO SCH (09:17)
[2019-05-01] MEDS: ENOXAPARIN 40 MG/0.4 ML SQ SCH (09:17)
[2019-05-01 14:09] VITALS: BP 148/83
[2019-05-01] MEDS: CARVEDILOL 6.25 MG TABLET PO SCH (17:21)
[2019-05-01 19:11] VITALS: BP 152/81
[2019-05-01] MEDS: ATORVASTATIN 80 MG TABLET PO SCH (20:36)
[2019-05-02 04:11] VITALS: BP 106/69
[2019-05-02] MEDS: ASPIRIN 81 MG TABLET CHEW PO SCH (05:48)
[2019-05-02] MEDS: CARVEDILOL 6.25 MG TABLET PO SCH ×2 (05:48→18:09)
[2019-05-02 05:49] VITALS: BP 131/73
[2019-05-02 06:14] VITALS: BP 113/70
[2019-05-02] MEDS: ENOXAPARIN 40 MG/0.4 ML SQ SCH (09:11)
[2019-05-02] MEDS: CLOPIDOGREL 75 MG TABLET PO SCH (09:11)
[2019-05-02] MEDS: LISINOPRIL 20 MG TABLET PO SCH ×2 (09:11→20:32)
[2019-05-02 09:18] VITALS: BP 124/89
[2019-05-02 12:26] VITALS: BP 110/68
[2019-05-02] MEDS: RISPERIDONE 0.5 MG TABLET PO SCH ×2 (18:09→20:32)
[2019-05-02 18:25] VITALS: BP 136/75
[2019-05-02] MEDS: ATORVASTATIN 80 MG TABLET PO SCH (20:32)
[2019-05-03 01:12] VITALS: BP 120/72
[2019-05-03] MEDS: ASPIRIN 81 MG TABLET CHEW PO SCH (06:02)
[2019-05-03] MEDS: CARVEDILOL 6.25 MG TABLET PO SCH ×2 (06:02→17:14)
[2019-05-03 06:11] VITALS: BP 149/69
[2019-05-03] MEDS: LISINOPRIL 20 MG TABLET PO SCH ×2 (08:29→20:28)
[2019-05-03] MEDS: ENOXAPARIN 40 MG/0.4 ML SQ SCH (08:29)
[2019-05-03] MEDS: CLOPIDOGREL 75 MG TABLET PO SCH (08:29)
[2019-05-03 13:13] VITALS: BP 134/63
[2019-05-03 18:33] VITALS: BP 123/66
[2019-05-03] MEDS: ATORVASTATIN 80 MG TABLET PO SCH (20:27)
[2019-05-03] MEDS: RISPERIDONE 0.5 MG TABLET PO SCH (20:28)
[2019-05-04 00:34] VITALS: BP 118/62
[2019-05-04] MEDS: CARVEDILOL 6.25 MG TABLET PO SCH ×2 (06:00→17:42)
[2019-05-04 06:04] VITALS: BP 137/81
[2019-05-04] MEDS: ASPIRIN 81 MG TABLET CHEW PO SCH (06:06)
[2019-05-04] MEDS: ENOXAPARIN 40 MG/0.4 ML SQ SCH (08:01)
[2019-05-04] MEDS: CLOPIDOGREL 75 MG TABLET PO SCH (08:01)
[2019-05-04] MEDS: LISINOPRIL 20 MG TABLET PO SCH ×2 (08:02→19:37)
[2019-05-04 14:43] VITALS: BP 135/72
[2019-05-04 17:42] VITALS: BP 162/85
[2019-05-04 19:16] VITALS: BP 152/83
[2019-05-04] MEDS: ATORVASTATIN 80 MG TABLET PO SCH (19:37)
[2019-05-04] MEDS: RISPERIDONE 0.5 MG TABLET PO SCH (19:38)
[2019-05-05 02:33] VITALS: BP 137/72
[2019-05-05] MEDS: CARVEDILOL 6.25 MG TABLET PO SCH ×2 (05:46→16:46)
[2019-05-05] MEDS: ASPIRIN 81 MG TABLET CHEW PO SCH (05:46)
[2019-05-05 07:55] VITALS: BP 135/75
[2019-05-05 08:37] VITALS: BP 119/75
[2019-05-05] MEDS: CLOPIDOGREL 75 MG TABLET PO SCH (08:50)
[2019-05-05] MEDS: LISINOPRIL 20 MG TABLET PO SCH ×2 (08:50→22:30)
[2019-05-05] MEDS: ENOXAPARIN 40 MG/0.4 ML SQ SCH (08:50)
[2019-05-05 14:08] VITALS: BP 130/67
[2019-05-05 19:56] VITALS: BP 130/79
[2019-05-05] MEDS: ATORVASTATIN 80 MG TABLET PO SCH (22:29)
[2019-05-05] MEDS: RISPERIDONE 0.5 MG TABLET PO SCH (22:30)
[2019-05-06] VITALS (8 sets, daily range): BP systolic 112–182; BP diastolic 52–90
[2019-05-06] MEDS: ASPIRIN 81 MG TABLET CHEW PO SCH (05:57)
[2019-05-06] MEDS: CARVEDILOL 6.25 MG TABLET PO SCH ×2 (05:57→18:13)
[2019-05-06] MEDS: ENOXAPARIN 40 MG/0.4 ML SQ SCH (10:54)
[2019-05-06] MEDS: LISINOPRIL 20 MG TABLET PO SCH ×2 (10:55→22:04)
[2019-05-06] MEDS: CLOPIDOGREL 75 MG TABLET PO SCH (10:55)
[2019-05-06] MEDS: RISPERIDONE 0.5 MG TABLET PO SCH (22:04)
[2019-05-06] MEDS: ATORVASTATIN 80 MG TABLET PO SCH (22:04)
[2019-05-07] VITALS (9 sets, daily range): BP systolic 120–163; BP diastolic 61–90
[2019-05-07] MEDS: ASPIRIN 81 MG TABLET CHEW PO SCH (06:00)
[2019-05-07] MEDS: CARVEDILOL 6.25 MG TABLET PO SCH ×2 (06:01→18:18)
[2019-05-07] MEDS: ENOXAPARIN 40 MG/0.4 ML SQ SCH (10:12)
[2019-05-07] MEDS: LISINOPRIL 20 MG TABLET PO SCH ×2 (10:12→21:48)
[2019-05-07] MEDS: CLOPIDOGREL 75 MG TABLET PO SCH (10:12)
[2019-05-07] MEDS: SENNA/DOCUSATE TABLET PO SCH (16:38)
[2019-05-07] MEDS: RISPERIDONE 0.5 MG TABLET PO SCH (21:48)
[2019-05-07] MEDS: ATORVASTATIN 80 MG TABLET PO SCH (21:48)
[2019-05-08 01:57] VITALS: BP 102/63
[2019-05-08 05:21] LABS: CREATININE 1.05 mg/dL (0.55-1.02)
[2019-05-08 05:39] VITALS: BP 109/64
[2019-05-08] MEDS: CARVEDILOL 6.25 MG TABLET PO SCH ×2 (05:43→17:05)
[2019-05-08] MEDS: ASPIRIN 81 MG TABLET CHEW PO SCH (05:43)
[2019-05-08 07:07] VITALS: BP 127/72
[2019-05-08] MEDS: LISINOPRIL 20 MG TABLET PO SCH ×2 (08:32→20:47)
[2019-05-08] MEDS: CLOPIDOGREL 75 MG TABLET PO SCH (08:37)
[2019-05-08] MEDS: ENOXAPARIN 40 MG/0.4 ML SQ SCH (08:38)
[2019-05-08 11:47] LABS: BASOPHILS # (AUTO) 0.04 x10^3/uL (0-0.1); BASOPHILS % (AUTO) 1 % (0-1); EOSINOPHILS # (AUTO) 0.23 x10^3/uL (0-0.4); EOSINOPHILS % (AUTO) 3 % (1-7); LYMPHOCYTES # (AUTO) 1.34 x10^3/uL (1-3.4); LYMPHOCYTES % (AUTO) 20 % (22-44); MD NO; MEAN CORPUSCULAR HEMOGLOBIN 29.1 pg (27.0-34.8); MEAN CORPUSCULAR HGB CONC 32.7 g/dL (32.4-35.8); MEAN PLATELET VOLUME 11.9 fL (7.4-10.4); MONOCYTES # (AUTO) 0.65 x10^3/uL (0.2-0.8); MONOCYTES % (AUTO) 10 % (2-9); NEUTROPHILS # (AUTO) 4.36 x10^3/uL (1.8-6.8); NEUTROPHILS % (AUTO) 66 % (42-75); PLATELET COUNT 269 x10^3/uL (130-400); RED BLOOD COUNT 4.47 x10^6/uL (3.82-5.3); RED CELL DISTRIBUTION WIDTH 14.8 % (9.6-15.2)
[2019-05-08 12:29] VITALS: BP 136/80
[2019-05-08 16:19] LABS: MICROSCOPIC INDICATED
[2019-05-08 16:23] LABS: CULTURE INDICATED? YES
[2019-05-08 17:04] VITALS: BP 153/91
[2019-05-08] MEDS: SENNA/DOCUSATE TABLET PO SCH (17:05)
[2019-05-08] MEDS ORDERED: CEFTRIAXONE PMX 1GM/50ML 50 ML IV SCH (18:00)
[2019-05-08] MEDS ORDERED: SODIUM CHLORIDE 0.9%, 500ML IVBOLUS ONE (18:00)
[2019-05-08 20:32] VITALS: BP 132/66
[2019-05-08] MEDS: ATORVASTATIN 80 MG TABLET PO SCH (20:47)
[2019-05-08] MEDS: RISPERIDONE 0.5 MG TABLET PO SCH (20:49)
[2019-05-09 01:33] VITALS: BP 108/64
[2019-05-09] MEDS: ASPIRIN 81 MG TABLET CHEW PO SCH (06:18)
[2019-05-09] MEDS: CARVEDILOL 6.25 MG TABLET PO SCH ×2 (06:18→18:52)
[2019-05-09 06:38] LABS: BASOPHILS # (AUTO) 0.06 x10^3/uL (0-0.1); BASOPHILS % (AUTO) 1 % (0-1); EOSINOPHILS # (AUTO) 0.18 x10^3/uL (0-0.4); EOSINOPHILS % (AUTO) 3 % (1-7); LYMPHOCYTES # (AUTO) 1.09 x10^3/uL (1-3.4); LYMPHOCYTES % (AUTO) 18 % (22-44); MD NO; MEAN CORPUSCULAR HEMOGLOBIN 29.1 pg (27.0-34.8); MEAN CORPUSCULAR HGB CONC 32.7 g/dL (32.4-35.8); MEAN CORPUSCULAR VOLUME 88.9 fL (80-100); MEAN PLATELET VOLUME 10.5 fL (7.4-10.4); MONOCYTES # (AUTO) 0.53 x10^3/uL (0.2-0.8); MONOCYTES % (AUTO) 9 % (2-9); NEUTROPHILS % (AUTO) 69 % (42-75); PLATELET COUNT 249 x10^3/uL (130-400); RED BLOOD COUNT 4.43 x10^6/uL (3.82-5.3); RED CELL DISTRIBUTION WIDTH 15.3 % (9.6-15.2)
[2019-05-09 06:47] LABS: ANION GAP 7 mmol/L (5-15); CALCIUM 8.4 mg/dL (8.5-10.1); CHLORIDE 114 mmol/L (98-107)
[2019-05-09 06:49] LABS: CREATININE 0.99 mg/dL (0.55-1.02)
[2019-05-09 08:46] VITALS: BP 154/71
[2019-05-09] MEDS: LISINOPRIL 20 MG TABLET PO SCH ×2 (09:46→21:52)
[2019-05-09] MEDS: CLOPIDOGREL 75 MG TABLET PO SCH (09:46)
[2019-05-09] MEDS: ENOXAPARIN 40 MG/0.4 ML SQ SCH (09:46)
[2019-05-09] MEDS: AMPICILLIN/SULBACTAM 3 GM in SODIUM CHLORIDE 0.9% 100 ML IV SCH ×2 (14:06→21:52)
[2019-05-09 14:14] VITALS: BP 133/76
[2019-05-09] MEDS: SENNA/DOCUSATE TABLET PO SCH (17:02)
[2019-05-09 18:48] VITALS: BP 162/88
[2019-05-09] MEDS: RISPERIDONE 0.5 MG TABLET PO SCH (21:51)
[2019-05-09] MEDS: ATORVASTATIN 80 MG TABLET PO SCH (21:52)
[2019-05-10 01:20] VITALS: BP 125/67
[2019-05-10] MEDS: AMPICILLIN/SULBACTAM 3 GM in SODIUM CHLORIDE 0.9% 100 ML IV SCH ×2 (05:41→13:24)
[2019-05-10] MEDS: CARVEDILOL 6.25 MG TABLET PO SCH ×2 (05:43→18:17)
[2019-05-10] MEDS: ASPIRIN 81 MG TABLET CHEW PO SCH (05:44)
[2019-05-10 06:20] LABS: BASOPHILS # (AUTO) 0.07 x10^3/uL (0-0.1); BASOPHILS % (AUTO) 1 % (0-1); EOSINOPHILS # (AUTO) 0.18 x10^3/uL (0-0.4); EOSINOPHILS % (AUTO) 3 % (1-7); LYMPHOCYTES # (AUTO) 1.47 x10^3/uL (1-3.4); LYMPHOCYTES % (AUTO) 23 % (22-44); MD NO; MEAN CORPUSCULAR HEMOGLOBIN 29.5 pg (27.0-34.8); MEAN CORPUSCULAR HGB CONC 33.2 g/dL (32.4-35.8); MEAN CORPUSCULAR VOLUME 88.8 fL (80-100); MEAN PLATELET VOLUME 11.1 fL (7.4-10.4); MONOCYTES # (AUTO) 0.56 x10^3/uL (0.2-0.8); MONOCYTES % (AUTO) 9 % (2-9); NEUTROPHILS # (AUTO) 4.08 x10^3/uL (1.8-6.8); NEUTROPHILS % (AUTO) 64 % (42-75); PLATELET COUNT 245 x10^3/uL (130-400); RED BLOOD COUNT 4.35 x10^6/uL (3.82-5.3); RED CELL DISTRIBUTION WIDTH 15.3 % (9.6-15.2)
[2019-05-10 06:26] LABS: ANION GAP 6 mmol/L (5-15); CALCIUM 8.6 mg/dL (8.5-10.1); CHLORIDE 115 mmol/L (98-107); CREATININE 0.99 mg/dL (0.55-1.02)
[2019-05-10 06:38] VITALS: BP 138/82
[2019-05-10] MEDS: CLOPIDOGREL 75 MG TABLET PO SCH (09:37)
[2019-05-10] MEDS: LISINOPRIL 20 MG TABLET PO SCH ×2 (09:38→21:17)
[2019-05-10] MEDS: ENOXAPARIN 40 MG/0.4 ML SQ SCH (09:38)
[2019-05-10 13:34] VITALS: BP 147/81
[2019-05-10] MEDS: SENNA/DOCUSATE TABLET PO SCH (17:26)
[2019-05-10] MEDS: AMPICILLIN 2 GM in SODIUM CHLORIDE 0.9% 100 ML IV SCH (19:38)
[2019-05-10 19:41] VITALS: BP 169/80
[2019-05-10] MEDS: RISPERIDONE 0.5 MG TABLET PO SCH (21:18)
[2019-05-10] MEDS: ATORVASTATIN 80 MG TABLET PO SCH (21:18)
[2019-05-11] MEDS: AMPICILLIN 2 GM in SODIUM CHLORIDE 0.9% 100 ML IV SCH ×4 (01:53→20:38)
[2019-05-11 02:38] VITALS: BP 159/74
[2019-05-11 06:01] VITALS: BP 151/88
[2019-05-11] MEDS: CARVEDILOL 6.25 MG TABLET PO SCH ×2 (06:04→16:35)
[2019-05-11] MEDS: ASPIRIN 81 MG TABLET CHEW PO SCH (06:04)
[2019-05-11] MEDS: CLOPIDOGREL 75 MG TABLET PO SCH (08:33)
[2019-05-11] MEDS: LISINOPRIL 20 MG TABLET PO SCH ×2 (08:35→20:38)
[2019-05-11] MEDS: ENOXAPARIN 40 MG/0.4 ML SQ SCH (08:49)
[2019-05-11 14:27] VITALS: BP 136/68
[2019-05-11] MEDS: SENNA/DOCUSATE TABLET PO SCH (15:52)
[2019-05-11 20:36] VITALS: BP 159/75
[2019-05-11] MEDS: ATORVASTATIN 80 MG TABLET PO SCH (20:38)
[2019-05-11] MEDS: RISPERIDONE 0.5 MG TABLET PO SCH (20:41)
[2019-05-12 00:20] VITALS: BP 121/75
[2019-05-12] MEDS: AMPICILLIN 2 GM in SODIUM CHLORIDE 0.9% 100 ML IV SCH ×4 (02:30→21:45)
[2019-05-12 05:15] VITALS: BP 152/84
[2019-05-12] MEDS: CARVEDILOL 6.25 MG TABLET PO SCH ×2 (05:16→17:53)
[2019-05-12] MEDS: ASPIRIN 81 MG TABLET CHEW PO SCH (05:16)
[2019-05-12] MEDS: CLOPIDOGREL 75 MG TABLET PO SCH (08:12)
[2019-05-12] MEDS: ENOXAPARIN 40 MG/0.4 ML SQ SCH (08:12)
[2019-05-12] MEDS: LISINOPRIL 20 MG TABLET PO SCH ×2 (08:12→21:48)
[2019-05-12 08:13] VITALS: BP 123/71
[2019-05-12 14:56] VITALS: BP 106/67
[2019-05-12 17:52] VITALS: BP 143/84
[2019-05-12] MEDS: SENNA/DOCUSATE TABLET PO SCH (17:53)
[2019-05-12 19:32] VITALS: BP 148/88
[2019-05-12] MEDS: ATORVASTATIN 80 MG TABLET PO SCH (21:48)
[2019-05-12] MEDS: RISPERIDONE 0.5 MG TABLET PO SCH (21:49)
[2019-05-13] VITALS (7 sets, daily range): BP systolic 133–176; BP diastolic 82–91
[2019-05-13] MEDS: AMPICILLIN 2 GM in SODIUM CHLORIDE 0.9% 100 ML IV SCH ×4 (02:43→20:20)
[2019-05-13] MEDS: ASPIRIN 81 MG TABLET CHEW PO SCH (05:47)
[2019-05-13] MEDS: CARVEDILOL 6.25 MG TABLET PO SCH ×2 (05:47→17:16)
[2019-05-13] MEDS: LISINOPRIL 20 MG TABLET PO SCH ×2 (08:23→20:17)
[2019-05-13] MEDS: CLOPIDOGREL 75 MG TABLET PO SCH (08:24)
[2019-05-13] MEDS: ENOXAPARIN 40 MG/0.4 ML SQ SCH (08:24)
[2019-05-13] MEDS: SENNA/DOCUSATE TABLET PO SCH (17:16)
[2019-05-13] MEDS: RISPERIDONE 0.5 MG TABLET PO SCH (20:17)
[2019-05-13] MEDS: ATORVASTATIN 80 MG TABLET PO SCH (20:17)
[2019-05-14 02:36] VITALS: BP 142/80
[2019-05-14] MEDS: AMPICILLIN 2 GM in SODIUM CHLORIDE 0.9% 100 ML IV SCH ×2 (02:36→07:51)
[2019-05-14] MEDS: CARVEDILOL 6.25 MG TABLET PO SCH ×2 (06:29→18:09)
[2019-05-14] MEDS: ASPIRIN 81 MG TABLET CHEW PO SCH (06:32)
[2019-05-14] MEDS: CLOPIDOGREL 75 MG TABLET PO SCH (07:51)
[2019-05-14] MEDS: LISINOPRIL 20 MG TABLET PO SCH ×2 (07:51→20:53)
[2019-05-14] MEDS: ENOXAPARIN 40 MG/0.4 ML SQ SCH (07:51)
[2019-05-14 10:19] VITALS: BP 142/83
[2019-05-14 15:16] VITALS: BP 141/84
[2019-05-14 18:09] VITALS: BP 161/84
[2019-05-14] MEDS: SENNA/DOCUSATE TABLET PO SCH (18:09)
[2019-05-14 19:47] VITALS: BP 140/79
[2019-05-14] MEDS: RISPERIDONE 0.5 MG TABLET PO SCH (20:52)
[2019-05-14] MEDS: ATORVASTATIN 80 MG TABLET PO SCH (20:53)
[2019-05-15 01:34] VITALS: BP 115/67
[2019-05-15] MEDS: CARVEDILOL 6.25 MG TABLET PO SCH ×2 (05:44→18:03)
[2019-05-15] MEDS: ASPIRIN 81 MG TABLET CHEW PO SCH (05:45)
[2019-05-15 08:12] VITALS: BP 108/66
[2019-05-15 09:48] VITALS: BP 124/75
[2019-05-15] MEDS: CLOPIDOGREL 75 MG TABLET PO SCH (09:49)
[2019-05-15] MEDS: LISINOPRIL 20 MG TABLET PO SCH ×2 (09:50→22:18)
[2019-05-15] MEDS: ENOXAPARIN 40 MG/0.4 ML SQ SCH (09:50)
[2019-05-15 13:08] VITALS: BP 141/76
[2019-05-15] MEDS: SENNA/DOCUSATE TABLET PO SCH (17:06)
[2019-05-15 18:00] VITALS: BP 150/80
[2019-05-15 20:00] VITALS: BP 134/73
[2019-05-15] MEDS: ATORVASTATIN 80 MG TABLET PO SCH (22:18)
[2019-05-15] MEDS: RISPERIDONE 0.5 MG TABLET PO SCH (22:18)
[2019-05-16 02:00] VITALS: BP 138/83
[2019-05-16] MEDS: ASPIRIN 81 MG TABLET CHEW PO SCH (05:59)
[2019-05-16] MEDS: CARVEDILOL 6.25 MG TABLET PO SCH ×2 (06:03→16:40)
[2019-05-16 06:20] LABS: CREATININE 1.02 mg/dL (0.55-1.02)
[2019-05-16 07:52] VITALS: BP 143/85
[2019-05-16] MEDS: LISINOPRIL 20 MG TABLET PO SCH ×2 (10:08→20:36)
[2019-05-16] MEDS: CLOPIDOGREL 75 MG TABLET PO SCH (10:09)
[2019-05-16] MEDS: ENOXAPARIN 40 MG/0.4 ML SQ SCH (10:09)
[2019-05-16 12:52] VITALS: BP 138/79
[2019-05-16] MEDS: SENNA/DOCUSATE TABLET PO SCH (16:40)
[2019-05-16 18:47] VITALS: BP 137/78
[2019-05-16] MEDS: ATORVASTATIN 80 MG TABLET PO SCH (20:35)
[2019-05-16] MEDS: RISPERIDONE 0.5 MG TABLET PO SCH (20:38)
[2019-05-17 00:23] VITALS: BP 104/64
[2019-05-17 05:37] VITALS: BP 115/71
[2019-05-17] MEDS: CARVEDILOL 6.25 MG TABLET PO SCH ×2 (05:57→17:31)
[2019-05-17] MEDS: ASPIRIN 81 MG TABLET CHEW PO SCH (05:57)
[2019-05-17 06:58] VITALS: BP 108/67
[2019-05-17] MEDS: CLOPIDOGREL 75 MG TABLET PO SCH (09:47)
[2019-05-17] MEDS: LISINOPRIL 20 MG TABLET PO SCH ×2 (09:48→21:27)
[2019-05-17] MEDS: ENOXAPARIN 40 MG/0.4 ML SQ SCH (09:48)
[2019-05-17 13:48] VITALS: BP 136/66
[2019-05-17] MEDS: SENNA/DOCUSATE TABLET PO SCH (17:30)
[2019-05-17 19:54] VITALS: BP 150/69
[2019-05-17] MEDS: RISPERIDONE 0.5 MG TABLET PO SCH (21:27)
[2019-05-17] MEDS: ATORVASTATIN 80 MG TABLET PO SCH (21:27)
[2019-05-18 02:10] VITALS: BP 108/68
[2019-05-18 07:20] VITALS: BP 117/69
[2019-05-18] MEDS: CARVEDILOL 6.25 MG TABLET PO SCH ×2 (07:24→17:42)
[2019-05-18] MEDS: ASPIRIN 81 MG TABLET CHEW PO SCH (07:24)
[2019-05-18] MEDS: LISINOPRIL 20 MG TABLET PO SCH ×2 (08:54→21:22)
[2019-05-18] MEDS: CLOPIDOGREL 75 MG TABLET PO SCH (08:54)
[2019-05-18] MEDS: ENOXAPARIN 40 MG/0.4 ML SQ SCH (08:54)
[2019-05-18 13:54] VITALS: BP 154/82
[2019-05-18] MEDS: SENNA/DOCUSATE TABLET PO SCH (17:41)
[2019-05-18 19:49] VITALS: BP 166/74
[2019-05-18 21:20] VITALS: BP 165/65
[2019-05-18] MEDS: ATORVASTATIN 80 MG TABLET PO SCH (21:22)
[2019-05-18] MEDS: RISPERIDONE 0.5 MG TABLET PO SCH (21:22)
[2019-05-19 01:13] VITALS: BP 103/66
[2019-05-19] MEDS ORDERED: ZIPRASIDONE 20 MG INJ IM ONE ×3 (04:44→05:00)
[2019-05-19 05:30] VITALS: BP 127/81
[2019-05-19] MEDS: ASPIRIN 81 MG TABLET CHEW PO SCH (05:38)
[2019-05-19] MEDS: CARVEDILOL 6.25 MG TABLET PO SCH ×2 (05:38→16:51)
[2019-05-19 06:28] VITALS: BP 111/69
[2019-05-19] MEDS: LISINOPRIL 20 MG TABLET PO SCH ×2 (10:25→20:17)
[2019-05-19] MEDS: ENOXAPARIN 40 MG/0.4 ML SQ SCH (10:25)
[2019-05-19] MEDS: CLOPIDOGREL 75 MG TABLET PO SCH (10:25)
[2019-05-19 12:27] VITALS: BP 154/83
[2019-05-19 16:42] VITALS: BP 157/63
[2019-05-19] MEDS: SENNA/DOCUSATE TABLET PO SCH (16:49)
[2019-05-19] MEDS: RISPERIDONE 0.5 MG TABLET PO SCH (20:17)
[2019-05-19] MEDS: ATORVASTATIN 80 MG TABLET PO SCH (20:17)
[2019-05-19 20:31] VITALS: BP 183/82
[2019-05-20 00:07] VITALS: BP 154/79
[2019-05-20] MEDS: ASPIRIN 81 MG TABLET CHEW PO SCH (05:41)
[2019-05-20] MEDS: CARVEDILOL 6.25 MG TABLET PO SCH (05:41)
[2019-05-20 07:18] VITALS: BP 122/71
[2019-05-20] MEDS: CLOPIDOGREL 75 MG TABLET PO SCH (10:54)
[2019-05-20] MEDS: ENOXAPARIN 40 MG/0.4 ML SQ SCH (10:54)
[2019-05-20] MEDS: LISINOPRIL 20 MG TABLET PO SCH ×2 (10:54→21:26)
[2019-05-20 12:43] VITALS: BP 136/79
[2019-05-20 17:55] VITALS: BP 152/90
[2019-05-20] MEDS: SENNA/DOCUSATE TABLET PO SCH (17:56)
[2019-05-20] MEDS: CARVEDILOL 25 MG TABLET PO SCH (17:56)
[2019-05-20 20:23] VITALS: BP 136/81
[2019-05-20] MEDS: RISPERIDONE 0.5 MG TABLET PO SCH (21:26)
[2019-05-20] MEDS: ATORVASTATIN 80 MG TABLET PO SCH (21:26)
[2019-05-21 00:32] VITALS: BP 100/62
[2019-05-21 06:18] VITALS: BP 144/82
[2019-05-21] MEDS: CARVEDILOL 25 MG TABLET PO SCH ×2 (06:21→17:00)
[2019-05-21] MEDS: ASPIRIN 81 MG TABLET CHEW PO SCH (06:21)
[2019-05-21] MEDS: LISINOPRIL 20 MG TABLET PO SCH ×2 (08:02→21:20)
[2019-05-21] MEDS: CLOPIDOGREL 75 MG TABLET PO SCH (08:03)
[2019-05-21] MEDS: ENOXAPARIN 40 MG/0.4 ML SQ SCH (08:03)
[2019-05-21 08:17] VITALS: BP 117/72
[2019-05-21 12:53] VITALS: BP 106/67
[2019-05-21] MEDS: SENNA/DOCUSATE TABLET PO SCH (17:00)
[2019-05-21 18:36] VITALS: BP 158/81
[2019-05-21] MEDS: ATORVASTATIN 80 MG TABLET PO SCH (21:19)
[2019-05-21] MEDS: RISPERIDONE 0.5 MG TABLET PO SCH (21:19)
[2019-05-22 01:21] VITALS: BP 148/78
[2019-05-22 05:37] LABS: CREATININE 1.07 mg/dL (0.55-1.02)
[2019-05-22 06:29] VITALS: BP 146/74
[2019-05-22] MEDS: CARVEDILOL 25 MG TABLET PO SCH ×2 (06:34→16:57)
[2019-05-22] MEDS: ASPIRIN 81 MG TABLET CHEW PO SCH (06:35)
[2019-05-22] MEDS: CLOPIDOGREL 75 MG TABLET PO SCH (08:22)
[2019-05-22] MEDS: LISINOPRIL 20 MG TABLET PO SCH ×2 (08:23→20:02)
[2019-05-22] MEDS: ENOXAPARIN 40 MG/0.4 ML SQ SCH (08:23)
[2019-05-22 13:02] VITALS: BP 134/78
[2019-05-22] MEDS: SENNA/DOCUSATE TABLET PO SCH (16:57)
[2019-05-22 19:41] VITALS: BP_SYST 157; BP_SYST 171; BP_DIAS 71; BP_DIAS 84
[2019-05-22] MEDS: ATORVASTATIN 80 MG TABLET PO SCH (20:02)
[2019-05-22] MEDS: RISPERIDONE 0.5 MG TABLET PO SCH (20:02)
[2019-05-23 06:04] VITALS: BP_SYST 103; BP_SYST 143; BP_DIAS 65; BP_DIAS 80
[2019-05-23] MEDS: ASPIRIN 81 MG TABLET CHEW PO SCH (06:09)
[2019-05-23] MEDS: CARVEDILOL 25 MG TABLET PO SCH ×2 (06:09→17:37)
[2019-05-23 06:53] VITALS: BP 130/65
[2019-05-23] MEDS: LISINOPRIL 20 MG TABLET PO SCH ×2 (11:18→21:10)
[2019-05-23] MEDS: CLOPIDOGREL 75 MG TABLET PO SCH (11:18)
[2019-05-23] MEDS: ENOXAPARIN 40 MG/0.4 ML SQ SCH (11:19)
[2019-05-23 14:12] VITALS: BP 130/73
[2019-05-23] MEDS: SENNA/DOCUSATE TABLET PO SCH (16:15)
[2019-05-23 17:37] VITALS: BP 177/85
[2019-05-23 18:33] VITALS: BP 150/81
[2019-05-23] MEDS: RISPERIDONE 0.5 MG TABLET PO SCH (21:10)
[2019-05-23] MEDS: ATORVASTATIN 80 MG TABLET PO SCH (21:10)
[2019-05-24 00:45] VITALS: BP 135/78
[2019-05-24 05:26] VITALS: BP 116/50
[2019-05-24] MEDS: ASPIRIN 81 MG TABLET CHEW PO SCH (05:29)
[2019-05-24] MEDS: CARVEDILOL 25 MG TABLET PO SCH ×2 (05:29→18:37)
[2019-05-24 08:11] VITALS: BP 101/62
[2019-05-24] MEDS: CLOPIDOGREL 75 MG TABLET PO SCH (10:36)
[2019-05-24] MEDS: LISINOPRIL 20 MG TABLET PO SCH ×2 (10:36→20:04)
[2019-05-24] MEDS: ENOXAPARIN 40 MG/0.4 ML SQ SCH (10:37)
[2019-05-24 15:00] VITALS: BP 115/56
[2019-05-24 18:34] VITALS: BP 109/57
[2019-05-24] MEDS: SENNA/DOCUSATE TABLET PO SCH (18:37)
[2019-05-24] MEDS: ATORVASTATIN 80 MG TABLET PO SCH (20:04)
[2019-05-24] MEDS: RISPERIDONE 0.5 MG TABLET PO SCH (20:05)
[2019-05-25] VITALS (7 sets, daily range): BP systolic 94–168; BP diastolic 62–79
[2019-05-25] MEDS: ASPIRIN 81 MG TABLET CHEW PO SCH (05:21)
[2019-05-25] MEDS: CARVEDILOL 25 MG TABLET PO SCH ×2 (05:21→18:26)
[2019-05-25] MEDS: CLOPIDOGREL 75 MG TABLET PO SCH (09:37)
[2019-05-25] MEDS: LISINOPRIL 20 MG TABLET PO SCH ×2 (09:37→20:31)
[2019-05-25] MEDS: ENOXAPARIN 40 MG/0.4 ML SQ SCH (09:38)
[2019-05-25] MEDS: SENNA/DOCUSATE TABLET PO SCH (16:40)
[2019-05-25] MEDS: RISPERIDONE 0.5 MG TABLET PO SCH (20:31)
[2019-05-25] MEDS: ATORVASTATIN 80 MG TABLET PO SCH (20:31)
[2019-05-26 02:23] VITALS: BP 112/66
[2019-05-26] MEDS: CARVEDILOL 25 MG TABLET PO SCH ×2 (05:18→17:39)
[2019-05-26] MEDS: ASPIRIN 81 MG TABLET CHEW PO SCH (05:18)
[2019-05-26 06:49] VITALS: BP 117/72
[2019-05-26] MEDS: ENOXAPARIN 40 MG/0.4 ML SQ SCH (09:39)
[2019-05-26] MEDS: LISINOPRIL 20 MG TABLET PO SCH ×2 (09:39→23:22)
[2019-05-26] MEDS: CLOPIDOGREL 75 MG TABLET PO SCH (09:39)
[2019-05-26 13:25] VITALS: BP 113/65
[2019-05-26 17:38] VITALS: BP 94/61
[2019-05-26] MEDS: SENNA/DOCUSATE TABLET PO SCH (17:40)
[2019-05-26 19:42] VITALS: BP_SYST 154; BP_SYST 194; BP_DIAS 83; BP_DIAS 86
[2019-05-26] MEDS: RISPERIDONE 0.5 MG TABLET PO SCH (20:08)
[2019-05-26] MEDS: ATORVASTATIN 80 MG TABLET PO SCH (20:09)
[2019-05-26] MEDS ORDERED: ZIPRASIDONE 20 MG INJ IM ONE (21:30)
[2019-05-26 22:19] VITALS: BP 120/76
[2019-05-27 00:39] VITALS: BP 123/73
[2019-05-27] MEDS: CARVEDILOL 25 MG TABLET PO SCH ×2 (05:58→17:24)
[2019-05-27 05:59] VITALS: BP 110/68
[2019-05-27] MEDS: ASPIRIN 81 MG TABLET CHEW PO SCH (05:59)
[2019-05-27 08:00] VITALS: BP 117/74
[2019-05-27] MEDS: ENOXAPARIN 40 MG/0.4 ML SQ SCH (09:15)
[2019-05-27] MEDS: CLOPIDOGREL 75 MG TABLET PO SCH (09:15)
[2019-05-27] MEDS: LISINOPRIL 20 MG TABLET PO SCH ×2 (09:15→21:40)
[2019-05-27 13:31] VITALS: BP 102/67
[2019-05-27] MEDS: SENNA/DOCUSATE TABLET PO SCH (17:24)
[2019-05-27 20:34] VITALS: BP 145/75
[2019-05-27] MEDS: ATORVASTATIN 80 MG TABLET PO SCH (21:39)
[2019-05-27] MEDS: RISPERIDONE 0.5 MG TABLET PO SCH (21:40)
[2019-05-28] VITALS (8 sets, daily range): BP systolic 96–149; BP diastolic 63–84
[2019-05-28] MEDS: ASPIRIN 81 MG TABLET CHEW PO SCH (06:12)
[2019-05-28] MEDS: CARVEDILOL 25 MG TABLET PO SCH ×2 (06:13→18:37)
[2019-05-28] MEDS: LISINOPRIL 20 MG TABLET PO SCH ×2 (09:39→21:02)
[2019-05-28] MEDS: CLOPIDOGREL 75 MG TABLET PO SCH (09:39)
[2019-05-28] MEDS: ENOXAPARIN 40 MG/0.4 ML SQ SCH (09:39)
[2019-05-28] MEDS: SENNA/DOCUSATE TABLET PO SCH (17:00)
[2019-05-28] MEDS: ATORVASTATIN 80 MG TABLET PO SCH (21:03)
[2019-05-28] MEDS: RISPERIDONE 0.5 MG TABLET PO SCH (21:03)
[2019-05-29 03:55] VITALS: BP 109/65
[2019-05-29 06:33] VITALS: BP 115/68
[2019-05-29] MEDS: CARVEDILOL 25 MG TABLET PO SCH ×2 (06:36→17:30)
[2019-05-29] MEDS: ASPIRIN 81 MG TABLET CHEW PO SCH (06:36)
[2019-05-29] MEDS: LISINOPRIL 20 MG TABLET PO SCH ×2 (09:45→20:20)
[2019-05-29] MEDS: ENOXAPARIN 40 MG/0.4 ML SQ SCH (09:45)
[2019-05-29] MEDS: CLOPIDOGREL 75 MG TABLET PO SCH (09:45)
[2019-05-29 17:20] VITALS: BP 151/77
[2019-05-29] MEDS: SENNA/DOCUSATE TABLET PO SCH (17:23)
[2019-05-29 18:15] VITALS: BP 158/84
[2019-05-29] MEDS: RISPERIDONE 0.5 MG TABLET PO SCH (20:20)
[2019-05-29] MEDS: ATORVASTATIN 80 MG TABLET PO SCH (20:20)
[2019-05-30 00:57] VITALS: BP 148/81
[2019-05-30] MEDS: ASPIRIN 81 MG TABLET CHEW PO SCH (06:04)
[2019-05-30] MEDS: CARVEDILOL 25 MG TABLET PO SCH ×2 (06:05→17:04)
[2019-05-30 06:16] VITALS: BP 106/64
[2019-05-30 09:12] VITALS: BP 148/83
[2019-05-30] MEDS: ENOXAPARIN 40 MG/0.4 ML SQ SCH (09:12)
[2019-05-30] MEDS: CLOPIDOGREL 75 MG TABLET PO SCH (09:12)
[2019-05-30] MEDS: LISINOPRIL 20 MG TABLET PO SCH ×2 (09:12→20:27)
[2019-05-30 15:48] VITALS: BP 126/76
[2019-05-30] MEDS: SENNA/DOCUSATE TABLET PO SCH (17:01)
[2019-05-30 17:04] VITALS: BP 139/82
[2019-05-30] MEDS: ATORVASTATIN 80 MG TABLET PO SCH (20:27)
[2019-05-30] MEDS: RISPERIDONE 0.5 MG TABLET PO SCH (20:28)
[2019-05-30 20:31] VITALS: BP 147/85
[2019-05-31 01:30] VITALS: BP 120/62
[2019-05-31 06:25] LABS: CALCIUM 8.6 mg/dL (8.5-10.1); CHLORIDE 113 mmol/L (98-107)
[2019-05-31 06:26] LABS: BASOPHILS # (AUTO) 0.03 x10^3/uL (0-0.1); BASOPHILS % (AUTO) 1 % (0-1); EOSINOPHILS % (AUTO) 2 % (1-7); LYMPHOCYTES # (AUTO) 1.54 x10^3/uL (1-3.4); LYMPHOCYTES % (AUTO) 27 % (22-44); MD NO; MEAN CORPUSCULAR HEMOGLOBIN 29.8 pg (27.0-34.8); MEAN CORPUSCULAR HGB CONC 32.8 g/dL (32.4-35.8); MEAN CORPUSCULAR VOLUME 90.8 fL (80-100); MEAN PLATELET VOLUME 10.9 fL (7.4-10.4); MONOCYTES # (AUTO) 0.45 x10^3/uL (0.2-0.8); MONOCYTES % (AUTO) 8 % (2-9); NEUTROPHILS # (AUTO) 3.67 x10^3/uL (1.8-6.8); NEUTROPHILS % (AUTO) 63 % (42-75); PLATELET COUNT 151 x10^3/uL (130-400); RED BLOOD COUNT 4.01 x10^6/uL (3.82-5.3); RED CELL DISTRIBUTION WIDTH 17.8 % (9.6-15.2)
[2019-05-31 06:28] LABS: ANION GAP 8 mmol/L (5-15); CREATININE 1.04 mg/dL (0.55-1.02)
[2019-05-31] MEDS: CARVEDILOL 25 MG TABLET PO SCH ×2 (06:28→16:57)
[2019-05-31] MEDS: ASPIRIN 81 MG TABLET CHEW PO SCH (06:28)
[2019-05-31 07:09] VITALS: BP 126/69
[2019-05-31] MEDS: LISINOPRIL 20 MG TABLET PO SCH ×2 (08:16→20:17)
[2019-05-31] MEDS: CLOPIDOGREL 75 MG TABLET PO SCH (08:16)
[2019-05-31] MEDS: ENOXAPARIN 40 MG/0.4 ML SQ SCH (08:17)
[2019-05-31 13:04] VITALS: BP 125/64
[2019-05-31] MEDS: SENNA/DOCUSATE TABLET PO SCH (16:03)
[2019-05-31 16:57] VITALS: BP 163/85
[2019-05-31] MEDS: ATORVASTATIN 80 MG TABLET PO SCH (20:17)
[2019-05-31] MEDS: RISPERIDONE 0.5 MG TABLET PO SCH (20:17)
[2019-05-31 20:19] VITALS: BP 176/84
[2019-06-01 02:25] VITALS: BP 115/70
[2019-06-01] MEDS: CARVEDILOL 25 MG TABLET PO SCH ×2 (05:48→16:13)
[2019-06-01] MEDS: ASPIRIN 81 MG TABLET CHEW PO SCH (05:48)
[2019-06-01 08:00] VITALS: BP 94/54
[2019-06-01] MEDS: LISINOPRIL 20 MG TABLET PO SCH ×2 (09:46→20:15)
[2019-06-01] MEDS: ENOXAPARIN 40 MG/0.4 ML SQ SCH (09:47)
[2019-06-01] MEDS: CLOPIDOGREL 75 MG TABLET PO SCH (09:47)
[2019-06-01 12:06] VITALS: BP 144/74
[2019-06-01 16:12] VITALS: BP 121/79
[2019-06-01] MEDS: SENNA/DOCUSATE TABLET PO SCH (16:13)
[2019-06-01 19:06] VITALS: BP 160/80
[2019-06-01] MEDS: ATORVASTATIN 80 MG TABLET PO SCH (20:15)
[2019-06-01] MEDS: RISPERIDONE 0.5 MG TABLET PO SCH (20:15)
[2019-06-02 00:26] VITALS: BP 148/76
[2019-06-02] MEDS: ASPIRIN 81 MG TABLET CHEW PO SCH (05:57)
[2019-06-02] MEDS: CARVEDILOL 25 MG TABLET PO SCH ×3 (05:58→18:33)
[2019-06-02 06:27] VITALS: BP 121/50
[2019-06-02] MEDS: CLOPIDOGREL 75 MG TABLET PO SCH (07:38)
[2019-06-02] MEDS: LISINOPRIL 20 MG TABLET PO SCH ×2 (07:38→20:01)
[2019-06-02] MEDS: ENOXAPARIN 40 MG/0.4 ML SQ SCH (07:39)
[2019-06-02 13:56] VITALS: BP 137/54
[2019-06-02 14:31] LABS: BASOPHILS # (AUTO) 0.04 x10^3/uL (0-0.1); BASOPHILS % (AUTO) 1 % (0-1); EOSINOPHILS % (AUTO) 2 % (1-7); LYMPHOCYTES # (AUTO) 1.29 x10^3/uL (1-3.4); LYMPHOCYTES % (AUTO) 20 % (22-44); MD NO; MEAN CORPUSCULAR HEMOGLOBIN 30.1 pg (27.0-34.8); MEAN CORPUSCULAR HGB CONC 33.4 g/dL (32.4-35.8); MEAN CORPUSCULAR VOLUME 90.2 fL (80-100); MONOCYTES # (AUTO) 0.34 x10^3/uL (0.2-0.8); MONOCYTES % (AUTO) 5 % (2-9); NEUTROPHILS # (AUTO) 4.85 x10^3/uL (1.8-6.8); NEUTROPHILS % (AUTO) 73 % (42-75); PLATELET COUNT 167 x10^3/uL (130-400); RED BLOOD COUNT 4.52 x10^6/uL (3.82-5.3); RED CELL DISTRIBUTION WIDTH 17.7 % (9.6-15.2)
[2019-06-02 14:41] LABS: CHLORIDE 110 mmol/L (98-107)
[2019-06-02 14:42] LABS: ALBUMIN 3.6 g/dL (3.4-5.0); ANION GAP 4 mmol/L (5-15); CALCIUM 8.9 mg/dL (8.5-10.1)
[2019-06-02 14:45] LABS: ALANINE AMINOTRANSFERASE 48 U/L (12-78); ALKALINE PHOSPHATASE 118 U/L (45-117); BILIRUBIN,TOTAL 0.9 mg/dL (0.2-1.0); CREATININE 0.95 mg/dL (0.55-1.02); TOTAL PROTEIN 7.7 g/dL (6.4-8.2)
[2019-06-02] MEDS: SENNA/DOCUSATE TABLET PO SCH (17:05)
[2019-06-02 18:26] VITALS: BP 155/84
[2019-06-02] MEDS: ATORVASTATIN 80 MG TABLET PO SCH (20:01)
[2019-06-02] MEDS: RISPERIDONE 0.5 MG TABLET PO SCH (20:01)
[2019-06-02] MEDS: LEVETIRACETAM 500 MG TABLET PO SCH (20:01)
[2019-06-03 00:27] VITALS: BP 134/72
[2019-06-03] MEDS: CARVEDILOL 25 MG TABLET PO SCH ×2 (05:49→17:16)
[2019-06-03] MEDS: ASPIRIN 81 MG TABLET CHEW PO SCH (05:50)
[2019-06-03 07:57] VITALS: BP 123/67
[2019-06-03] MEDS: LEVETIRACETAM 500 MG TABLET PO SCH ×2 (08:04→20:45)
[2019-06-03] MEDS: ENOXAPARIN 40 MG/0.4 ML SQ SCH (08:04)
[2019-06-03] MEDS: LISINOPRIL 20 MG TABLET PO SCH ×2 (08:04→20:45)
[2019-06-03] MEDS: CLOPIDOGREL 75 MG TABLET PO SCH (08:04)
[2019-06-03 12:49] VITALS: BP 93/59
[2019-06-03 14:56] VITALS: BP 113/72
[2019-06-03] MEDS: SENNA/DOCUSATE TABLET PO SCH (17:16)
[2019-06-03 19:36] VITALS: BP 114/68
[2019-06-03 20:37] VITALS: BP 119/70
[2019-06-03] MEDS: RISPERIDONE 0.5 MG TABLET PO SCH (20:45)
[2019-06-03] MEDS: ATORVASTATIN 80 MG TABLET PO SCH (20:45)
[2019-06-04 00:52] VITALS: BP 109/69
[2019-06-04 06:18] VITALS: BP 114/70
[2019-06-04] MEDS: CARVEDILOL 25 MG TABLET PO SCH ×2 (06:20→17:03)
[2019-06-04] MEDS: ASPIRIN 81 MG TABLET CHEW PO SCH (06:20)
[2019-06-04] MEDS: LISINOPRIL 20 MG TABLET PO SCH ×2 (08:06→19:43)
[2019-06-04] MEDS: CLOPIDOGREL 75 MG TABLET PO SCH (08:06)
[2019-06-04] MEDS: ENOXAPARIN 40 MG/0.4 ML SQ SCH (08:06)
[2019-06-04] MEDS: LEVETIRACETAM 500 MG TABLET PO SCH ×2 (08:06→19:43)
[2019-06-04 12:19] VITALS: BP 120/69
[2019-06-04] MEDS: SENNA/DOCUSATE TABLET PO SCH (17:03)
[2019-06-04 18:43] VITALS: BP 120/72
[2019-06-04 19:42] VITALS: BP 138/69
[2019-06-04] MEDS: RISPERIDONE 0.5 MG TABLET PO SCH (19:43)
[2019-06-04] MEDS: ATORVASTATIN 80 MG TABLET PO SCH (19:43)
[2019-06-04 20:51] VITALS: BP 125/72
[2019-06-05 01:28] VITALS: BP 118/64
[2019-06-05 05:52] VITALS: BP 139/69
[2019-06-05] MEDS: CARVEDILOL 25 MG TABLET PO SCH ×2 (05:54→17:19)
[2019-06-05] MEDS: ASPIRIN 81 MG TABLET CHEW PO SCH (05:54)
[2019-06-05 07:00] VITALS: BP 106/72
[2019-06-05 09:38] VITALS: BP 145/73
[2019-06-05] MEDS: LISINOPRIL 20 MG TABLET PO SCH ×2 (09:41→19:22)
[2019-06-05] MEDS: CLOPIDOGREL 75 MG TABLET PO SCH (09:41)
[2019-06-05] MEDS: LEVETIRACETAM 500 MG TABLET PO SCH ×2 (09:41→19:22)
[2019-06-05] MEDS: ENOXAPARIN 40 MG/0.4 ML SQ SCH (09:42)
[2019-06-05 14:20] VITALS: BP 153/85
[2019-06-05] MEDS: SENNA/DOCUSATE TABLET PO SCH (17:20)
[2019-06-05 19:11] VITALS: BP 162/73
[2019-06-05] MEDS: ATORVASTATIN 80 MG TABLET PO SCH (19:22)
[2019-06-05] MEDS: RISPERIDONE 0.5 MG TABLET PO SCH (19:22)
[2019-06-06 00:32] VITALS: BP 155/83
[2019-06-06 05:54] VITALS: BP 122/64
[2019-06-06] MEDS: ASPIRIN 81 MG TABLET CHEW PO SCH (05:58)
[2019-06-06] MEDS: CARVEDILOL 25 MG TABLET PO SCH ×2 (05:58→17:05)
[2019-06-06 07:29] VITALS: BP 98/60
[2019-06-06] MEDS: CLOPIDOGREL 75 MG TABLET PO SCH (10:34)
[2019-06-06] MEDS: LEVETIRACETAM 500 MG TABLET PO SCH ×2 (10:34→21:11)
[2019-06-06] MEDS: LISINOPRIL 20 MG TABLET PO SCH ×2 (10:34→21:11)
[2019-06-06] MEDS: ENOXAPARIN 40 MG/0.4 ML SQ SCH (10:34)
[2019-06-06 14:41] VITALS: BP 126/69
[2019-06-06] MEDS: SENNA/DOCUSATE TABLET PO SCH (17:05)
[2019-06-06 18:46] VITALS: BP 128/74
[2019-06-06] MEDS: RISPERIDONE 0.5 MG TABLET PO SCH (21:11)
[2019-06-06] MEDS: ATORVASTATIN 80 MG TABLET PO SCH (21:11)
[2019-06-07 01:26] VITALS: BP 111/69
[2019-06-07 05:24] VITALS: BP 111/51
[2019-06-07] MEDS: CARVEDILOL 25 MG TABLET PO SCH ×2 (05:28→17:02)
[2019-06-07] MEDS: ASPIRIN 81 MG TABLET CHEW PO SCH (05:28)
[2019-06-07 06:05] VITALS: BP 142/66
[2019-06-07 06:12] LABS: BASOPHILS # (AUTO) 0.03 x10^3/uL (0-0.1); BASOPHILS % (AUTO) 1 % (0-1); EOSINOPHILS # (AUTO) 0.13 x10^3/uL (0-0.4); EOSINOPHILS % (AUTO) 2 % (1-7); LYMPHOCYTES # (AUTO) 1.24 x10^3/uL (1-3.4); LYMPHOCYTES % (AUTO) 21 % (22-44); MD NO; MEAN CORPUSCULAR HEMOGLOBIN 29.8 pg (27.0-34.8); MEAN CORPUSCULAR HGB CONC 33.1 g/dL (32.4-35.8); MEAN CORPUSCULAR VOLUME 90.1 fL (80-100); MEAN PLATELET VOLUME 10.8 fL (7.4-10.4); MONOCYTES # (AUTO) 0.53 x10^3/uL (0.2-0.8); MONOCYTES % (AUTO) 9 % (2-9); NEUTROPHILS # (AUTO) 3.88 x10^3/uL (1.8-6.8); NEUTROPHILS % (AUTO) 67 % (42-75); PLATELET COUNT 144 x10^3/uL (130-400); RED BLOOD COUNT 3.85 x10^6/uL (3.82-5.3); RED CELL DISTRIBUTION WIDTH 17.7 % (9.6-15.2)
[2019-06-07 06:19] LABS: ANION GAP 7 mmol/L (5-15); CALCIUM 8.5 mg/dL (8.5-10.1); CHLORIDE 110 mmol/L (98-107)
[2019-06-07 06:20] LABS: CREATININE 0.88 mg/dL (0.55-1.02)
[2019-06-07] MEDS: CLOPIDOGREL 75 MG TABLET PO SCH (09:28)
[2019-06-07] MEDS: LISINOPRIL 20 MG TABLET PO SCH ×2 (09:28→20:14)
[2019-06-07] MEDS: LEVETIRACETAM 500 MG TABLET PO SCH ×2 (09:28→20:14)
[2019-06-07] MEDS: ENOXAPARIN 40 MG/0.4 ML SQ SCH (09:29)
[2019-06-07 14:24] VITALS: BP 111/72
[2019-06-07] MEDS: SENNA/DOCUSATE TABLET PO SCH (17:02)
[2019-06-07] MEDS: RISPERIDONE 0.5 MG TABLET PO SCH (20:14)
[2019-06-07] MEDS: ATORVASTATIN 80 MG TABLET PO SCH (20:15)
[2019-06-07 20:20] VITALS: BP 154/85
[2019-06-08 03:32] VITALS: BP 140/82
[2019-06-08] MEDS: ASPIRIN 81 MG TABLET CHEW PO SCH (05:17)
[2019-06-08] MEDS: CARVEDILOL 25 MG TABLET PO SCH ×2 (05:17→17:02)
[2019-06-08 06:51] VITALS: BP 98/62
[2019-06-08] MEDS: LEVETIRACETAM 500 MG TABLET PO SCH ×2 (08:31→20:15)
[2019-06-08] MEDS: CLOPIDOGREL 75 MG TABLET PO SCH (08:31)
[2019-06-08] MEDS: ENOXAPARIN 40 MG/0.4 ML SQ SCH (08:32)
[2019-06-08] MEDS: LISINOPRIL 20 MG TABLET PO SCH ×2 (08:33→20:15)
[2019-06-08 13:10] VITALS: BP 136/76
[2019-06-08] MEDS: SENNA/DOCUSATE TABLET PO SCH (17:02)
[2019-06-08] MEDS: RISPERIDONE 0.5 MG TABLET PO SCH (20:15)
[2019-06-08] MEDS: ATORVASTATIN 80 MG TABLET PO SCH (20:15)
[2019-06-08 20:18] VITALS: BP 153/85
[2019-06-08] MEDS ORDERED: ZIPRASIDONE 20 MG INJ IM ONE (22:30)
[2019-06-09 00:48] VITALS: BP 121/67
[2019-06-09] MEDS: CARVEDILOL 25 MG TABLET PO SCH ×2 (08:00→18:09)
[2019-06-09 11:21] VITALS: BP 130/84
[2019-06-09] MEDS: LEVETIRACETAM 500 MG TABLET PO SCH ×2 (11:29→21:02)
[2019-06-09] MEDS: ENOXAPARIN 40 MG/0.4 ML SQ SCH (11:29)
[2019-06-09] MEDS: CLOPIDOGREL 75 MG TABLET PO SCH (11:29)
[2019-06-09] MEDS: ASPIRIN 81 MG TABLET CHEW PO SCH (11:29)
[2019-06-09] MEDS: LISINOPRIL 20 MG TABLET PO SCH ×2 (11:29→21:02)
[2019-06-09 14:08] VITALS: BP 109/70
[2019-06-09] MEDS: SENNA/DOCUSATE TABLET PO SCH (16:07)
[2019-06-09 18:08] VITALS: BP 128/62
[2019-06-09 21:00] VITALS: BP 115/67
[2019-06-09] MEDS: RISPERIDONE 0.5 MG TABLET PO SCH (21:02)
[2019-06-09] MEDS: ATORVASTATIN 80 MG TABLET PO SCH (21:03)
[2019-06-10] MEDS ORDERED: ZIPRASIDONE 20 MG INJ IM PRN
[2019-06-10 01:23] VITALS: BP 119/70
[2019-06-10 05:30] VITALS: BP 111/70
[2019-06-10] MEDS: ASPIRIN 81 MG TABLET CHEW PO SCH (05:31)
[2019-06-10] MEDS: CARVEDILOL 25 MG TABLET PO SCH ×2 (05:31→18:10)
[2019-06-10 06:20] LABS: CULTURE INDICATED? YES; MICROSCOPIC INDICATED
[2019-06-10 06:56] VITALS: BP 158/78
[2019-06-10 08:19] VITALS: BP 121/70
[2019-06-10] MEDS: LISINOPRIL 20 MG TABLET PO SCH ×2 (10:06→20:37)
[2019-06-10] MEDS: LEVETIRACETAM 500 MG TABLET PO SCH ×2 (10:06→20:36)
[2019-06-10] MEDS: CLOPIDOGREL 75 MG TABLET PO SCH (10:06)
[2019-06-10] MEDS: ENOXAPARIN 40 MG/0.4 ML SQ SCH (10:07)
[2019-06-10 13:08] VITALS: BP 105/64
[2019-06-10] MEDS: SENNA/DOCUSATE TABLET PO SCH (18:10)
[2019-06-10 20:15] VITALS: BP 140/82
[2019-06-10] MEDS: ATORVASTATIN 80 MG TABLET PO SCH (20:37)
[2019-06-10] MEDS: RISPERIDONE 0.5 MG TABLET PO SCH (20:37)
[2019-06-10] MEDS: CEFTRIAXONE PMX 1GM/50ML 50 ML IV SCH (22:47)
[2019-06-11 00:51] VITALS: BP 109/79
[2019-06-11 05:45] VITALS: BP 124/77
[2019-06-11] MEDS: CARVEDILOL 25 MG TABLET PO SCH ×2 (05:49→18:12)
[2019-06-11] MEDS: ASPIRIN 81 MG TABLET CHEW PO SCH (05:49)
[2019-06-11 06:32] LABS: BASOPHILS # (AUTO) 0.03 x10^3/uL (0-0.1); BASOPHILS % (AUTO) 0 % (0-1); EOSINOPHILS # (AUTO) 0.13 x10^3/uL (0-0.4); EOSINOPHILS % (AUTO) 2 % (1-7); LYMPHOCYTES # (AUTO) 1.17 x10^3/uL (1-3.4); LYMPHOCYTES % (AUTO) 17 % (22-44); MD NO; MEAN CORPUSCULAR HEMOGLOBIN 30.5 pg (27.0-34.8); MEAN CORPUSCULAR HGB CONC 33.7 g/dL (32.4-35.8); MEAN CORPUSCULAR VOLUME 90.3 fL (80-100); MEAN PLATELET VOLUME 10.7 fL (7.4-10.4); MONOCYTES # (AUTO) 0.58 x10^3/uL (0.2-0.8); MONOCYTES % (AUTO) 8 % (2-9); NEUTROPHILS # (AUTO) 4.98 x10^3/uL (1.8-6.8); NEUTROPHILS % (AUTO) 72 % (42-75); PLATELET COUNT 147 x10^3/uL (130-400); RED BLOOD COUNT 3.99 x10^6/uL (3.82-5.3); RED CELL DISTRIBUTION WIDTH 17.8 % (9.6-15.2)
[2019-06-11 06:41] LABS: ANION GAP 5 mmol/L (5-15); CALCIUM 8.9 mg/dL (8.5-10.1); CHLORIDE 111 mmol/L (98-107)
[2019-06-11 06:42] LABS: CREATININE 0.91 mg/dL (0.55-1.02)
[2019-06-11] MEDS: LEVETIRACETAM 500 MG TABLET PO SCH ×2 (09:25→20:44)
[2019-06-11] MEDS: CLOPIDOGREL 75 MG TABLET PO SCH (09:25)
[2019-06-11] MEDS: LISINOPRIL 20 MG TABLET PO SCH ×2 (09:26→20:44)
[2019-06-11] MEDS: ENOXAPARIN 40 MG/0.4 ML SQ SCH (09:26)
[2019-06-11 09:49] VITALS: BP 144/93
[2019-06-11 14:03] VITALS: BP 117/71
[2019-06-11] MEDS: SENNA/DOCUSATE TABLET PO SCH (18:12)
[2019-06-11 19:19] VITALS: BP 125/65
[2019-06-11] MEDS: RISPERIDONE 0.5 MG TABLET PO SCH (20:44)
[2019-06-11] MEDS: ATORVASTATIN 80 MG TABLET PO SCH (20:44)
[2019-06-11] MEDS: CEFTRIAXONE PMX 1GM/50ML 50 ML IV SCH (23:04)
[2019-06-12 00:27] VITALS: BP 136/81
[2019-06-12 06:00] VITALS: BP 121/73
[2019-06-12] MEDS: CARVEDILOL 25 MG TABLET PO SCH ×2 (06:01→17:59)
[2019-06-12] MEDS: ASPIRIN 81 MG TABLET CHEW PO SCH (06:01)
[2019-06-12 07:58] VITALS: BP 109/65
[2019-06-12] MEDS: LISINOPRIL 20 MG TABLET PO SCH ×2 (09:11→20:23)
[2019-06-12] MEDS: CLOPIDOGREL 75 MG TABLET PO SCH (09:12)
[2019-06-12] MEDS: LEVETIRACETAM 500 MG TABLET PO SCH ×2 (09:12→20:22)
[2019-06-12] MEDS: ENOXAPARIN 40 MG/0.4 ML SQ SCH (09:12)
[2019-06-12 15:06] VITALS: BP 131/63
[2019-06-12] MEDS: SENNA/DOCUSATE TABLET PO SCH (17:59)
[2019-06-12 19:26] VITALS: BP 106/68
[2019-06-12] MEDS: ATORVASTATIN 80 MG TABLET PO SCH (20:22)
[2019-06-12] MEDS: RISPERIDONE 0.5 MG TABLET PO SCH (20:22)
[2019-06-12] MEDS: CEFTRIAXONE PMX 1GM/50ML 50 ML IV SCH (23:13)
[2019-06-13 02:17] VITALS: BP 101/63
[2019-06-13 05:32] VITALS: BP 151/83
[2019-06-13] MEDS: ASPIRIN 81 MG TABLET CHEW PO SCH (05:34)
[2019-06-13] MEDS: CARVEDILOL 25 MG TABLET PO SCH ×2 (05:34→17:24)
[2019-06-13 06:43] VITALS: BP 112/67
[2019-06-13] MEDS: CLOPIDOGREL 75 MG TABLET PO SCH (09:03)
[2019-06-13] MEDS: LEVETIRACETAM 500 MG TABLET PO SCH ×2 (09:03→20:53)
[2019-06-13] MEDS: LISINOPRIL 20 MG TABLET PO SCH ×2 (09:04→20:52)
[2019-06-13] MEDS: ENOXAPARIN 40 MG/0.4 ML SQ SCH (09:05)
[2019-06-13 14:04] VITALS: BP 145/76
[2019-06-13] MEDS: SENNA/DOCUSATE TABLET PO SCH (17:24)
[2019-06-13 17:29] VITALS: BP 153/75
[2019-06-13 20:17] VITALS: BP 138/78
[2019-06-13] MEDS: ATORVASTATIN 80 MG TABLET PO SCH (20:52)
[2019-06-13] MEDS: RISPERIDONE 0.5 MG TABLET PO SCH (20:53)
[2019-06-13] MEDS: CEFTRIAXONE PMX 1GM/50ML 50 ML IV SCH (22:59)
[2019-06-14 06:11] VITALS: BP 131/69
[2019-06-14] MEDS: ASPIRIN 81 MG TABLET CHEW PO SCH (06:21)
[2019-06-14] MEDS: CARVEDILOL 25 MG TABLET PO SCH ×2 (06:21→17:25)
[2019-06-14] MEDS: CLOPIDOGREL 75 MG TABLET PO SCH (08:45)
[2019-06-14] MEDS: LEVETIRACETAM 500 MG TABLET PO SCH ×2 (08:45→20:30)
[2019-06-14] MEDS: ENOXAPARIN 40 MG/0.4 ML SQ SCH (08:46)
[2019-06-14] MEDS: LISINOPRIL 20 MG TABLET PO SCH ×2 (08:46→20:31)
[2019-06-14 13:02] VITALS: BP 153/88
[2019-06-14] MEDS: SENNA/DOCUSATE TABLET PO SCH (17:25)
[2019-06-14 18:23] VITALS: BP 172/89
[2019-06-14] MEDS: ATORVASTATIN 80 MG TABLET PO SCH (20:30)
[2019-06-14] MEDS: RISPERIDONE 0.5 MG TABLET PO SCH (20:31)
[2019-06-14] MEDS: CEFTRIAXONE PMX 1GM/50ML 50 ML IV SCH (23:05)
[2019-06-15] MEDS: CARVEDILOL 25 MG TABLET PO SCH ×2 (06:03→17:10)
[2019-06-15] MEDS: ASPIRIN 81 MG TABLET CHEW PO SCH (06:03)
[2019-06-15 06:24] VITALS: BP 131/76
[2019-06-15 12:04] VITALS: BP 120/67
[2019-06-15] MEDS: LISINOPRIL 20 MG TABLET PO SCH ×2 (12:57→20:50)
[2019-06-15] MEDS: ENOXAPARIN 40 MG/0.4 ML SQ SCH (12:58)
[2019-06-15] MEDS: CLOPIDOGREL 75 MG TABLET PO SCH (12:58)
[2019-06-15] MEDS: LEVETIRACETAM 500 MG TABLET PO SCH ×2 (12:58→20:50)
[2019-06-15] MEDS: SENNA/DOCUSATE TABLET PO SCH (17:10)
[2019-06-15 19:11] VITALS: BP 153/76
[2019-06-15 20:45] VITALS: BP 126/65
[2019-06-15] MEDS: RISPERIDONE 0.5 MG TABLET PO SCH (20:50)
[2019-06-15] MEDS: ATORVASTATIN 80 MG TABLET PO SCH (20:50)
[2019-06-15] MEDS: CEFTRIAXONE PMX 1GM/50ML 50 ML IV SCH (23:10)
[2019-06-16 02:54] VITALS: BP 140/82
[2019-06-16 05:36] VITALS: BP 122/64
[2019-06-16] MEDS: CARVEDILOL 25 MG TABLET PO SCH (05:39)
[2019-06-16] MEDS: ASPIRIN 81 MG TABLET CHEW PO SCH (05:39)
[2019-06-16 06:44] VITALS: BP 156/85
[2019-06-16 07:32] LABS: CREATININE 0.96 mg/dL (0.55-1.02)
[2019-06-16 10:04] VITALS: BP 146/79
[2019-06-16] MEDS: CLOPIDOGREL 75 MG TABLET PO SCH (10:06)
[2019-06-16] MEDS: ENOXAPARIN 40 MG/0.4 ML SQ SCH (10:06)
[2019-06-16] MEDS: LEVETIRACETAM 500 MG TABLET PO SCH (10:06)
[2019-06-16] MEDS: LISINOPRIL 20 MG TABLET PO SCH (10:07)
[2019-06-16 12:15] VITALS: BP 151/79
[2019-06-16] MEDS ORDERED: RISP0.5T24 PO (14:17)
[2019-06-16] MEDS ORDERED: ASPI-515 PO (14:17)
[2019-06-16] MEDS ORDERED: CLOP75TA PO (14:17)
[2019-06-16] MEDS ORDERED: CARV25TA12 PO (14:17)
[2019-06-16] MEDS ORDERED: LISI-170 PO (14:17)
[2019-06-16] MEDS ORDERED: SENN-193 PO (14:17)
[2019-06-16] MEDS ORDERED: LEVE500T53 PO (14:17)
[2019-06-16] MEDS ORDERED: ATOR-2 PO (14:17)
[2019-06-16] MEDS ORDERED: HYDR-3341 PO (14:17)
[2019-06-16] MEDS ORDERED: FLU VACC QS2019-20 36MOS UP/PF 0.5 ML IM-VACC ONE (16:00)
== END 2019-06-16 16:47 | disposition home or self-care (01) | DRG 64 ==
LOC: ED 04-26 00:25 → EDIP 04-26 01:02 → 4EST 04-26 01:53 → 4WST 04-27 15:05
PROVIDERS: ADMIT Internal Medicine; ATTEND Hospitalist
DX: I63.531 Cerebral infarction due to unspecified occlusion or stenosis of right posterior cerebral artery (principal); G93.41 Metabolic encephalopathy; E46 Unspecified protein-calorie malnutrition; G81.91 Hemiplegia, unspecified affecting right dominant side; G81.94 Hemiplegia, unspecified affecting left nondominant side; N39.0 Urinary tract infection, site not specified; Q21.1 Atrial septal defect; I10 Essential (primary) hypertension; F25.9 Schizoaffective disorder, unspecified; R29.707 NIHSS score 7; R41.82 Altered mental status, unspecified; E66.9 Obesity, unspecified; E78.5 Hyperlipidemia, unspecified; E83.51 Hypocalcemia; B96.20 Unspecified Escherichia coli [E. coli] as the cause of diseases classified elsewhere; E87.6 Hypokalemia; B95.2 Enterococcus as the cause of diseases classified elsewhere; G89.29 Other chronic pain; M54.9 Dorsalgia, unspecified; G40.909 Epilepsy, unspecified, not intractable, without status epilepticus; J32.4 Chronic pansinusitis; Z72.0 Tobacco use; Z79.02 Long term (current) use of antithrombotics/antiplatelets; Z79.82 Long term (current) use of aspirin; Z79.899 Other long term (current) drug therapy; Z86.73 Personal history of transient ischemic attack (TIA), and cerebral infarction without residual deficits; Z91.19 Patient's noncompliance with other medical treatment and regimen; Z90.49 Acquired absence of other specified parts of digestive tract
CPT/HCPCS: 36415; 70450; 70496; 70498; 70551; 71045; 74230; 80048; 80053; 80061; 80069; 80185; 80307; 81001; 81003; 82140; 82565; 83735; 83880; 84100; 84439; 84443; 85025; 86480; 87077; 87086; 87186; 90686; 93005; 93306; 93356; 95819; 96360; 96361; G0378; J0290; J0295; J0610; J0696; J1650; J3486; Q9967; 92523-GN; J3475; J3490; J7030; J7040

== ENCOUNTER 2019-07-16 14:47 | Inpatient (IN) | payer MEDICARE ==
[~2019-07-16] VITALS: Ht 157.5 cm; Wt 77.0 kg
[~2019-07-16 14:47] MED LIST changes: +ASPI-515 PO; +ATOR-2 PO; +CARV25TA12 PO; +CLOP75TA PO; +HYDR-3341 PO; +LEVE500T53 PO; +RISP0.5T24 PO; +SENN-193 PO
--- NOTE | 2019-07-16 15:20 | NUR ---
THIS IS A 68 YO F BIB EMS FROM [facility] FOR ALTERED MENTAL STATUS. JAYMIE FROM [facility] [phone] REPORTS THAT AT BASELINE PT ONLY RESPONDS W/ YES OR NO ANSWERS, SHE USUALLY TURNS HEAD AND SMILES WHILE INTERACTING W/ STAFF, SHE CAN USUALLY SWALLOW FOOD THAT IS PLACED IN HER MOUTH. AT BASELINE SHE CAN ALSO STAND AND TAKE 1-2 STEPS BEFORE FEELING WEAK AND SITTING DOWN. PT OPENS EYES TO VERBAL STIMULI BUT WILL NOT RESPOND. WILL NOT SQUEEZE HANDS. DOES MOVE LIMBS SPONTANEOUSY, TURNED TO SIDE W/ ASSISTANCE FOR RECTAL TEMP. PT RECTAL TEMP IS 92.7 ON ARRIVAL, OTHER VS WDL. PT HAS HX OF STROKE AND COGNITIVE DELAY. WAS RECENTLY ADMITTED HERE IN MAY AND SEEN BY . JAYMIE FROM [facility] REPORTS NO CODE STATUS ON FILE AND NO FAMILY THAT THEY ARE AWARE OF. PIV IN PLACE [employer], EMS REPORTS GIVING 1.5 NARCAN AND 500ML OF NS.
--- NOTE | 2019-07-16 15:21 | NUR ---
BEAR DENAEGGER IN PLACE.
[2019-07-16] MEDS ORDERED: PLEASE ENTER HEIGHT AND WEIGHT MC SCH (15:30)
[2019-07-16] MEDS ORDERED: SODIUM CHLORIDE FLUSH 10ML SYR IVF ONE (15:30)
--- NOTE | 2019-07-16 15:50 | NUR ---
LAB AND RAD IN ROOM. SIDE RAILS UPX2, BED IN LOW POSITION, CALL LIGHT IN REACH.
--- NOTE | 2019-07-16 16:01 | NUR ---
RECTAL TEMPATURE PROBE PLACED.
--- NOTE | 2019-07-16 16:08 | NUR ---
[facility] TO FAX OVER PT INFORMATION INCLUDING MAR.
[2019-07-16 16:09] LABS: MICROSCOPIC INDICATED
[2019-07-16 16:10] LABS: CULTURE INDICATED? YES
[2019-07-16 16:11] LABS: ALANINE AMINOTRANSFERASE 208 U/L (12-78); ANION GAP 5 mmol/L (5-15); CALCIUM 8.6 mg/dL (8.5-10.1); CHLORIDE 118 mmol/L (98-107); INTERNATIONAL NORMALIZED RATIO 0.97 (0.93-1.1); PROTHROMBIN TIME 10.3 Seconds (9.6-11.5)
[2019-07-16 16:12] LABS: SALICYLATE LEVEL < 1.7 mg/dL (2.8-20.0)
[2019-07-16 16:13] LABS: AMPHETAMINE SCREEN, URINE Negative (Negative); BARBITURATE SCREEN, URINE Negative (Negative); BENZODIAZEPINE SCREEN, URINE Negative (Negative); CANNABINOID SCREEN, URINE Negative (Negative); COCAINE SCREEN, URINE Negative (Negative); METHADONE SCREEN, URINE Negative (Negative); OPIATE SCREEN, URINE Negative (Negative)
--- NOTE | 2019-07-16 16:13 | NUR ---
PT RESTING ON GURNEY W/ SIDE RAILS UP X2. NO CHANGE IN MENTAL STATUS SINCE ARRIVAL. BEAR HUGGER IN PLACE. CONNECTED TO ALL MONITORING. AWAITING RESULTS.
[2019-07-16 16:24] LABS: ALKALINE PHOSPHATASE 103 U/L (45-117); BILIRUBIN,TOTAL 0.5 mg/dL (0.2-1.0); CREATININE 1.31 mg/dL (0.55-1.02); FREE T4 (FREE THYROXINE) 1.18 ng/dL (0.76-1.46); TOTAL PROTEIN 6.7 g/dL (6.4-8.2)
[2019-07-16 16:27] LABS: BASOPHILS # (AUTO) 0.02 x10^3/uL (0-0.1); BASOPHILS % (AUTO) 0 % (0-1); EOSINOPHILS # (AUTO) 0.04 x10^3/uL (0-0.4); EOSINOPHILS % (AUTO) 1 % (1-7); LYMPHOCYTES # (AUTO) 0.79 x10^3/uL (1-3.4); LYMPHOCYTES % (AUTO) 14 % (22-44); MD MORPH REVIEW ONLY; MEAN CORPUSCULAR HEMOGLOBIN 31.4 pg (27.0-34.8); MEAN CORPUSCULAR VOLUME 95.2 fL (80-100); MEAN PLATELET VOLUME 10.2 fL (7.4-10.4); MONOCYTES # (AUTO) 0.37 x10^3/uL (0.2-0.8); MONOCYTES % (AUTO) 7 % (2-9); NEUTROPHILS # (AUTO) 4.29 x10^3/uL (1.8-6.8); NEUTROPHILS % (AUTO) 78 % (42-75); PLATELET COUNT 135 x10^3/uL (130-400); RED BLOOD COUNT 2.65 x10^6/uL (3.82-5.3); RED CELL DISTRIBUTION WIDTH 22.8 % (9.6-15.2)
[2019-07-16 16:32] LABS: <PLATELET ESTIMATE> ADEQUATE; <PLT MORPHOLOGY> NORMAL PLT MORPH; ANISOCYTOSIS 1+; MICROCYTOSIS 1+
--- NOTE | 2019-07-16 16:43 | NUR ---
PT TO RAD.
[2019-07-16] MEDS ORDERED: FURO40TA6 PO (16:51)
[2019-07-16] MEDS ORDERED: RISP1TAB3 PO (16:51)
[2019-07-16] MEDS ORDERED: POTA20TA14 PO (16:51)
[2019-07-16] MEDS ORDERED: CEFD125S3 PO (16:51)
--- NOTE | 2019-07-16 16:51 | NUR ---
MED REC DONE.
[2019-07-16] MEDS ORDERED: CEFTRIAXONE PMX 1GM/50ML 50 ML ONE (16:54)
[2019-07-16] MEDS ORDERED: CEFTRIAXONE PMX 1GM/50ML 50 ML IV ONE (17:00)
--- NOTE | 2019-07-16 17:20 | NUR ---
PT APPEARS SLIGHTLY MORE ALERT. WHEN ASKED IF PT WANTED PILLOW, PT RAISED HEAD. WHEN ASKED PT TO LOOK AT THIS RN SHE STARTED TO LOOK IN MY DIRECTION BUT DID NOT FULLY MAKE EYE CONTACT.
--- NOTE | 2019-07-16 18:17 | NUR ---
PT APPEARED TO HAVE LONG SINUS PAUSE WHILE THIS RN WAS IN THE ROOM. PT STILL HYPOTHERMIC. SPOKE W/ CHARGE AND MOVED PT TO T3. REPORT GIVEN TO MINI TILLMAN.
--- NOTE | 2019-07-16 18:19 | NUR ---
GIVEN REPORT FROM CHRISTINA Gramajo RN. PT HYPOTHERMIC AT 94.1 AND WARM NS BOLUS RUNNING PER DR. TRUJILLO. HOSPITALIST AT BEDSIDE.
[2019-07-16] MEDS ORDERED: SODIUM CHLORIDE 0.9% 1,000ML IVBOLUS ONE (18:30)
--- NOTE | 2019-07-16 18:50 | NUR ---
PT GCS DOWN TO 8 FROM ABOUT 12-[address] ROBISON AND DR. TRUJILLO AT BEDSIDE. PT KAYLEIGH ADMUITTED TO ICU FOR CLOSER MONITORING. BS WAS 74.
--- NOTE | 2019-07-16 18:58 | NUR ---
Assumed care from Yazan TILLMAN, Pt withdraws to jazzy, GCS is 8. MD aware of this. Pt saturating and maintain airway on her own.
--- NOTE | 2019-07-16 18:59 | NUR ---
REPORT TO YADIRA Stein RN.
[2019-07-16] MEDS ORDERED: ACETAMINOPHEN 325 MG TABLET PO PRN (19:00)
[2019-07-16] MEDS ORDERED: POLYETHYLENE GLYCOL 17 GM PACKET PO PRN (19:00)
[2019-07-16] MEDS ORDERED: LEVETIRACETAM 1,000 MG in SODIUM CHLORIDE 0.9% 100 ML IV ONE (19:00)
[2019-07-16] MEDS ORDERED: GLUCAGON 1 MG IM PRN (19:00)
[2019-07-16] MEDS ORDERED: DOCUSATE 100 MG CAPSULE PO PRN (19:00)
[2019-07-16] MEDS ORDERED: DEXTROSE 4 GM TAB.CHEW PO PRN (19:00)
[2019-07-16] MEDS ORDERED: ONDANSETRON 2MG/ML, 2ML IVPush PRN (19:00)
[2019-07-16] MEDS ORDERED: BISACODYL 10 MG SUPP PR PRN (19:00)
[2019-07-16] MEDS ORDERED: DEXTROSE 50%, 50ML SYRINGE IVPush PRN (19:00)
[2019-07-16] MEDS ORDERED: ONDANSETRON ODT 4 MG PO PRN (19:00)
[2019-07-16] MEDS ORDERED: hydrALAzine 20 MG/ML, 1ML IVPush PRN (19:00)
--- NOTE | 2019-07-16 19:04 | NUR ---
Height used is from previous admission
--- NOTE | 2019-07-16 19:25 | NUR ---
Pt found md kalyan informed. 1 liter of LR started.
[2019-07-16 19:32] LABS: TROPONIN I < 0.015 ng/mL (0.000-0.045)
--- NOTE | 2019-07-16 19:40 | NUR ---
MRI Form completed and screen is based off of medical hx on file. Pt is non verbal.
[2019-07-16] MEDS ORDERED: HEPARIN 5,000 UNITS/ML, 1ML ONE (19:46)
--- NOTE | 2019-07-16 19:47 | NUR ---
Med requested from [facility]
[2019-07-16] MEDS: HEPARIN 5,000 UNITS/ML, 1ML SQ SCH (19:49)
[2019-07-16] MEDS ORDERED: LACTATED RINGERS 1,000 ML IVBOLUS ONE (20:00)
--- NOTE | 2019-07-16 20:21 | NUR ---
Pt to MRI, pt to be transported with [employer] manager to MRI.
[2019-07-16] MEDS: D5%-0.45NACL+KCL 20MEQ 1,000 ML IV SCH (20:43)
[2019-07-16] MEDS: SODIUM CHLORIDE FLUSH 10ML SYR IVF SCH (20:44)
--- NOTE | 2019-07-16 20:45 | NUR ---
pT BACK FROM MRI, DRIPS [id number] AND PLACED BEAR PAW BACK ON
--- NOTE | 2019-07-16 21:04 | NUR ---
Report to Divina tobin
[2019-07-17] VITALS (8 sets, daily range): BP systolic 77–167; BP diastolic 38–94
[2019-07-17] MEDS ORDERED: LACTATED RINGERS 1,000 ML IVBOLUS ONE (00:30)
[2019-07-17] MEDS: D5%-0.45NACL+KCL 20MEQ 1,000 ML IV SCH ×2 (02:04→16:20)
[2019-07-17] MEDS: HEPARIN 5,000 UNITS/ML, 1ML SQ SCH ×3 (02:09→19:50)
[2019-07-17] MEDS ORDERED: SODIUM CHLORIDE 0.9% 1,000ML IVBOLUS ONE ×2 (03:00→04:00)
[2019-07-17 04:12] LABS: ALANINE AMINOTRANSFERASE 147 U/L (12-78); ALBUMIN 2.1 g/dL (3.4-5.0); ANION GAP 4 mmol/L (5-15); CALCIUM 7.5 mg/dL (8.5-10.1); CHLORIDE 121 mmol/L (98-107)
[2019-07-17 04:14] LABS: ALKALINE PHOSPHATASE 80 U/L (45-117); BILIRUBIN,TOTAL 0.4 mg/dL (0.2-1.0); TOTAL PROTEIN 4.8 g/dL (6.4-8.2)
[2019-07-17 04:26] LABS: TROPONIN I < 0.015 ng/mL (0.000-0.045)
[2019-07-17 04:32] LABS: FIO2 ROOM AIR %
[2019-07-17 04:33] LABS: MEAN CORPUSCULAR HEMOGLOBIN 31.5 pg (27.0-34.8); MEAN CORPUSCULAR HGB CONC 33.1 g/dL (32.4-35.8); MEAN CORPUSCULAR VOLUME 95.3 fL (80-100); RED BLOOD COUNT 1.94 x10^6/uL (3.82-5.3); RED CELL DISTRIBUTION WIDTH 22.6 % (9.6-15.2)
[2019-07-17] MEDS ORDERED: MAGNESIUM SULFATE PMX 2GM/50ML 50 ML IV ONE (05:00)
[2019-07-17] MEDS ORDERED: NOREPINEPHRINE 8 MG in SODIUM CHLORIDE 0.9% 242 ML IV PRN (05:00)
[2019-07-17] MEDS: PANTOPRAZOLE 40 MG IV IVPush SCH ×2 (05:09→17:12)
[2019-07-17 06:08] LABS: MEAN PLATELET VOLUME 10.4 fL (7.4-10.4); PLATELET COUNT 90 x10^3/uL (130-400)
[2019-07-17 06:11] LABS: BASOPHILS # (AUTO) 0.01 x10^3/uL (0-0.1); BASOPHILS % (AUTO) 0 % (0-1); EOSINOPHILS # (AUTO) 0.04 x10^3/uL (0-0.4); EOSINOPHILS % (AUTO) 1 % (1-7); LYMPHOCYTES # (AUTO) 0.92 x10^3/uL (1-3.4); LYMPHOCYTES % (AUTO) 26 % (22-44); MD MORPH REVIEW ONLY; MONOCYTES # (AUTO) 0.31 x10^3/uL (0.2-0.8); MONOCYTES % (AUTO) 9 % (2-9); NEUTROPHILS # (AUTO) 2.33 x10^3/uL (1.8-6.8); NEUTROPHILS % (AUTO) 65 % (42-75)
[2019-07-17 06:12] LABS: ANISOCYTOSIS 2+
[2019-07-17 06:13] LABS: <PLATELET ESTIMATE> DECREASED; POLYCHROMASIA 1+
[2019-07-17 06:14] LABS: LARGE PLATELETS 1+
[2019-07-17] MEDS ORDERED: PROPOFOL 100 ML IV PRN (08:34)
[2019-07-17] MEDS ORDERED: FENTANYL PF 100 MCG/2ML ONE (08:40)
[2019-07-17] MEDS: FENTANYL PF 100 MCG/2ML IVPush PRN ×3 (08:58→15:45)
[2019-07-17] MEDS ORDERED: LIDOCAINE-MPF 1%, 2ML ENDO PRN (09:00)
[2019-07-17] MEDS ORDERED: PHARMACY MAY ADJ FOR RENAL FX MC SCH (09:00)
[2019-07-17] MEDS ORDERED: LACTULOSE 20 GM/30 ML UDC NG PRN (09:00)
[2019-07-17] MEDS: LEVETIRACETAM 500 MG in SODIUM CHLORIDE 0.9% 100 ML IV SCH ×2 (10:47→21:15)
[2019-07-17] MEDS: SODIUM CHLORIDE FLUSH 10ML SYR IVF SCH ×2 (10:48→21:15)
[2019-07-17] MEDS ORDERED: COSYNTROPIN 0.25 MG IV ONE (12:00)
[2019-07-17] MEDS ORDERED: ETOMIDATE 20 MG/10 ML ONE (14:00)
[2019-07-17] MEDS ORDERED: SUCCINYLCHOLINE 20 MG/ML, 10ML ONE (14:00)
[2019-07-17] MEDS ORDERED: hydrALAzine 20 MG/ML, 1ML IV SCH (15:00)
--- NOTE | 2019-07-17 15:48 | NUR ---
TF recommendation if needed -> recommend Promote at 55 ml/hr to provide 1265 kcal, 79 gms protein. Addendum: 07/17/19 at [address] Amended: Links added.
[2019-07-17] MEDS ORDERED: CEFTRIAXONE PMX 1GM/50ML 50 ML IV SCH (19:00)
[2019-07-17] MEDS ORDERED: SENNA/DOCUSATE TABLET NG PRN (21:00)
[2019-07-17] MEDS ORDERED: hydrALAzine 20 MG/ML, 1ML IVPush PRN ×2 (21:30)
[2019-07-18] MEDS: D5%-0.45NACL+KCL 20MEQ 1,000 ML IV SCH ×3 (00:30→16:38)
[2019-07-18] MEDS: FENTANYL PF 100 MCG/2ML IVPush PRN ×3 (01:04→20:56)
[2019-07-18] MEDS: HEPARIN 5,000 UNITS/ML, 1ML SQ SCH ×3 (03:25→20:54)
[2019-07-18] MEDS: PANTOPRAZOLE 40 MG IV IVPush SCH ×2 (03:25→16:37)
[2019-07-18 04:00] VITALS: BP 132/43
[2019-07-18 04:56] LABS: BASOPHILS # (AUTO) 0.05 x10^3/uL (0-0.1); BASOPHILS % (AUTO) 1 % (0-1); EOSINOPHILS # (AUTO) 0.13 x10^3/uL (0-0.4); EOSINOPHILS % (AUTO) 2 % (1-7); LYMPHOCYTES # (AUTO) 0.97 x10^3/uL (1-3.4); LYMPHOCYTES % (AUTO) 13 % (22-44); MD NO; MEAN CORPUSCULAR HEMOGLOBIN 30.8 pg (27.0-34.8); MEAN CORPUSCULAR HGB CONC 33.2 g/dL (32.4-35.8); MEAN CORPUSCULAR VOLUME 92.7 fL (80-100); MEAN PLATELET VOLUME 9.9 fL (7.4-10.4); MONOCYTES # (AUTO) 0.97 x10^3/uL (0.2-0.8); MONOCYTES % (AUTO) 13 % (2-9); NEUTROPHILS # (AUTO) 5.37 x10^3/uL (1.8-6.8); NEUTROPHILS % (AUTO) 72 % (42-75); PLATELET COUNT 122 x10^3/uL (130-400); RED BLOOD COUNT 3.15 x10^6/uL (3.82-5.3)
[2019-07-18 05:09] LABS: ALANINE AMINOTRANSFERASE 130 U/L (12-78); ALBUMIN 2.4 g/dL (3.4-5.0); ANION GAP 5 mmol/L (5-15); CALCIUM 8.1 mg/dL (8.5-10.1); CHLORIDE 118 mmol/L (98-107); CREATININE 1.06 mg/dL (0.55-1.02)
[2019-07-18 05:11] LABS: ALKALINE PHOSPHATASE 89 U/L (45-117); BILIRUBIN,TOTAL 0.4 mg/dL (0.2-1.0); CREATINE KINASE, TOTAL 148 U/L (26-192); TOTAL PROTEIN 5.6 g/dL (6.4-8.2)
[2019-07-18] MEDS ORDERED: LEVETIRACETAM 750 MG in SODIUM CHLORIDE 0.9% 100 ML IV SCH (09:00)
[2019-07-18] MEDS ORDERED: VALPROIC ACID 250 MG CAPSULE PO SCH (09:30)
[2019-07-18] MEDS: SODIUM CHLORIDE FLUSH 10ML SYR IVF SCH ×2 (12:01→20:54)
[2019-07-18] MEDS: VALPROATE SODIUM 250 MG/5 ML UDC PO/NG SCH ×4 (12:52→20:55)
[2019-07-18] MEDS ORDERED: MEROPENEM 1 GM in SODIUM CHLORIDE 0.9% 100 ML IV SCH (13:00)
[2019-07-18] MEDS ORDERED: VALPROATE SODIUM 250 MG/5 ML UDC PO SCH (16:00)
[2019-07-18] MEDS ORDERED: LEVETIRACETAM 100 MG/ML, 5ML IV SCH (21:00)
[2019-07-19] MEDS: MEROPENEM 1 GM in SODIUM CHLORIDE 0.9% 100 ML IV SCH ×2 (00:43→13:03)
[2019-07-19] MEDS: FENTANYL PF 100 MCG/2ML IVPush PRN (00:43)
[2019-07-19] MEDS: D5%-0.45NACL+KCL 20MEQ 1,000 ML IV SCH ×2 (00:56→09:26)
[2019-07-19 02:27] LABS: ALANINE AMINOTRANSFERASE 93 U/L (12-78); ALBUMIN 2.1 g/dL (3.4-5.0); ANION GAP 5 mmol/L (5-15); CALCIUM 7.9 mg/dL (8.5-10.1); CHLORIDE 113 mmol/L (98-107); CREATININE 0.89 mg/dL (0.55-1.02)
[2019-07-19 02:30] LABS: ALKALINE PHOSPHATASE 82 U/L (45-117); BILIRUBIN,TOTAL 0.7 mg/dL (0.2-1.0); TOTAL PROTEIN 5.2 g/dL (6.4-8.2)
[2019-07-19 02:37] LABS: MEAN CORPUSCULAR HEMOGLOBIN 30.8 pg (27.0-34.8); MEAN CORPUSCULAR HGB CONC 33.5 g/dL (32.4-35.8); MEAN CORPUSCULAR VOLUME 91.9 fL (80-100); MEAN PLATELET VOLUME 9.9 fL (7.4-10.4); PLATELET COUNT 92 x10^3/uL (130-400); RED BLOOD COUNT 2.98 x10^6/uL (3.82-5.3); RED CELL DISTRIBUTION WIDTH 20.8 % (9.6-15.2)
[2019-07-19 02:45] LABS: MD YES
[2019-07-19 02:46] LABS: <PLATELET ESTIMATE> DECREASED; BASOS% (MANUAL) 1 % (0-1); LYMPH#(MANUAL) 0.86 x10^3/uL (1-3.4); LYMPHS% (MANUAL) 9 % (22-44); MONOS#(MANUAL) 0.58 x10^3/uL (0.3-2.7); MONOS% (MANUAL) 6 % (2-9); REACTIVE LYMPHS % (MANUAL) 1 % (0-0); SEG#(MANUAL) 7.97 x10^3/uL (1.8-6.8); SEGS% (MANUAL) 83 % (42-75)
[2019-07-19 02:47] LABS: ANISOCYTOSIS 2+
[2019-07-19 02:48] LABS: POLYCHROMASIA 1+
[2019-07-19 02:51] LABS: <PLT MORPHOLOGY> NORMAL PLT MORPH
[2019-07-19] MEDS: HEPARIN 5,000 UNITS/ML, 1ML SQ SCH (05:34)
[2019-07-19] MEDS: PANTOPRAZOLE 40 MG IV IVPush SCH ×2 (05:34→16:30)
[2019-07-19] MEDS: SODIUM CHLORIDE FLUSH 10ML SYR IVF SCH ×2 (08:49→20:40)
[2019-07-19] MEDS: CLOPIDOGREL 75 MG TABLET PO SCH (08:49)
[2019-07-19] MEDS: VALPROATE SODIUM 250 MG/5 ML UDC PO/NG SCH ×3 (08:49→20:40)
[2019-07-19] MEDS: FUROSEMIDE 20 MG/2 ML IV SCH ×2 (08:49→20:40)
[2019-07-19] MEDS ORDERED: OMNIPAQUE 350 MG/ML, 75ML BOTTLE ONE (09:27)
[2019-07-19] MEDS: THIAMINE 200 MG in SODIUM CHLORIDE 0.9% 50 ML IV SCH (09:29)
[2019-07-20] MEDS: MEROPENEM 1 GM in SODIUM CHLORIDE 0.9% 100 ML IV SCH ×2 (01:13→12:39)
[2019-07-20] MEDS: PANTOPRAZOLE 40 MG IV IVPush SCH ×2 (05:27→16:24)
[2019-07-20 06:20] LABS: MEAN CORPUSCULAR HEMOGLOBIN 30.7 pg (27.0-34.8); MEAN CORPUSCULAR HGB CONC 32.9 g/dL (32.4-35.8); MEAN CORPUSCULAR VOLUME 93.6 fL (80-100); MEAN PLATELET VOLUME 9.4 fL (7.4-10.4); PLATELET COUNT 114 x10^3/uL (130-400); RED BLOOD COUNT 2.94 x10^6/uL (3.82-5.3)
[2019-07-20 06:23] LABS: ANION GAP 5 mmol/L (5-15); CALCIUM 8.5 mg/dL (8.5-10.1); CHLORIDE 110 mmol/L (98-107)
[2019-07-20 06:31] LABS: BILIRUBIN, DIRECT 0.2 mg/dL (0.1-0.2); BILIRUBIN,INDIRECT 0.5 mg/dL (0.0-2.0); BILIRUBIN,TOTAL 0.7 mg/dL (0.2-1.0); CREATININE 0.94 mg/dL (0.55-1.02)
[2019-07-20 06:42] LABS: BASOPHILS # (AUTO) 0.03 x10^3/uL (0-0.1); BASOPHILS % (AUTO) 1 % (0-1); EOSINOPHILS # (AUTO) 0.25 x10^3/uL (0-0.4); EOSINOPHILS % (AUTO) 4 % (1-7); LYMPHOCYTES % (AUTO) 12 % (22-44); MD SCAN; MONOCYTES # (AUTO) 1.23 x10^3/uL (0.2-0.8); MONOCYTES % (AUTO) 18 % (2-9); NEUTROPHILS # (AUTO) 4.48 x10^3/uL (1.8-6.8); NEUTROPHILS % (AUTO) 66 % (42-75)
[2019-07-20] MEDS: SODIUM CHLORIDE FLUSH 10ML SYR IVF SCH ×2 (08:39→21:13)
[2019-07-20] MEDS: VALPROATE SODIUM 250 MG/5 ML UDC PO/NG SCH ×3 (08:39→21:51)
[2019-07-20] MEDS: THIAMINE 200 MG in SODIUM CHLORIDE 0.9% 50 ML IV SCH (08:39)
[2019-07-20] MEDS: FUROSEMIDE 20 MG/2 ML IV SCH ×2 (08:39→21:13)
[2019-07-20] MEDS: CLOPIDOGREL 75 MG TABLET PO SCH (08:40)
[2019-07-20] MEDS: HEPARIN 5,000 UNITS/ML, 1ML SQ SCH ×2 (08:40→16:25)
[2019-07-21] MEDS: MEROPENEM 1 GM in SODIUM CHLORIDE 0.9% 100 ML IV SCH ×2 (00:59→13:15)
[2019-07-21] MEDS: HEPARIN 5,000 UNITS/ML, 1ML SQ SCH ×3 (01:00→17:29)
[2019-07-21 05:01] LABS: ALANINE AMINOTRANSFERASE 60 U/L (12-78); ALBUMIN 2.2 g/dL (3.4-5.0); ANION GAP 4 mmol/L (5-15); CALCIUM 8.2 mg/dL (8.5-10.1); CHLORIDE 106 mmol/L (98-107)
[2019-07-21 05:04] LABS: ALKALINE PHOSPHATASE 89 U/L (45-117); BILIRUBIN,TOTAL 0.7 mg/dL (0.2-1.0); TOTAL PROTEIN 6.1 g/dL (6.4-8.2)
[2019-07-21 05:13] LABS: BASOPHILS # (AUTO) 0.03 x10^3/uL (0-0.1); BASOPHILS % (AUTO) 0 % (0-1); EOSINOPHILS # (AUTO) 0.23 x10^3/uL (0-0.4); EOSINOPHILS % (AUTO) 3 % (1-7); LYMPHOCYTES % (AUTO) 12 % (22-44); MD NO; MEAN CORPUSCULAR HEMOGLOBIN 31.1 pg (27.0-34.8); MEAN CORPUSCULAR HGB CONC 33.6 g/dL (32.4-35.8); MEAN CORPUSCULAR VOLUME 92.4 fL (80-100); MEAN PLATELET VOLUME 9.8 fL (7.4-10.4); MONOCYTES # (AUTO) 1.04 x10^3/uL (0.2-0.8); MONOCYTES % (AUTO) 16 % (2-9); NEUTROPHILS % (AUTO) 69 % (42-75); PLATELET COUNT 119 x10^3/uL (130-400); RED BLOOD COUNT 2.98 x10^6/uL (3.82-5.3); RED CELL DISTRIBUTION WIDTH 20.8 % (9.6-15.2)
[2019-07-21] MEDS: PANTOPRAZOLE 40 MG IV IVPush SCH ×2 (05:13→17:29)
[2019-07-21] MEDS: VALPROATE SODIUM 250 MG/5 ML UDC PO/NG SCH ×3 (08:56→21:35)
[2019-07-21] MEDS: FUROSEMIDE 20 MG/2 ML IV SCH ×2 (08:56→21:35)
[2019-07-21] MEDS: CLOPIDOGREL 75 MG TABLET PO SCH (08:57)
[2019-07-21] MEDS: SODIUM CHLORIDE FLUSH 10ML SYR IVF SCH ×2 (08:57→21:35)
[2019-07-21] MEDS: THIAMINE 200 MG in SODIUM CHLORIDE 0.9% 50 ML IV SCH (09:23)
[2019-07-21] MEDS ORDERED: DEXAMETHASONE 4 MG/ML, 1ML IVPush ONE (16:00)
[2019-07-21] MEDS ORDERED: DEXAMETHASONE 4 MG/ML, 1ML ONE (16:01)
[2019-07-22] MEDS: MEROPENEM 1 GM in SODIUM CHLORIDE 0.9% 100 ML IV SCH (01:15)
[2019-07-22] MEDS: HEPARIN 5,000 UNITS/ML, 1ML SQ SCH ×3 (01:15→16:33)
[2019-07-22 04:40] LABS: BASOPHILS # (AUTO) 0.02 x10^3/uL (0-0.1); BASOPHILS % (AUTO) 0 % (0-1); EOSINOPHILS % (AUTO) 0 % (1-7); LYMPHOCYTES # (AUTO) 0.57 x10^3/uL (1-3.4); LYMPHOCYTES % (AUTO) 10 % (22-44); MD NO; MEAN CORPUSCULAR HEMOGLOBIN 30.4 pg (27.0-34.8); MEAN CORPUSCULAR HGB CONC 33.1 g/dL (32.4-35.8); MEAN CORPUSCULAR VOLUME 91.9 fL (80-100); MEAN PLATELET VOLUME 9.8 fL (7.4-10.4); MONOCYTES # (AUTO) 0.35 x10^3/uL (0.2-0.8); MONOCYTES % (AUTO) 6 % (2-9); NEUTROPHILS # (AUTO) 4.68 x10^3/uL (1.8-6.8); NEUTROPHILS % (AUTO) 83 % (42-75); PLATELET COUNT 150 x10^3/uL (130-400); RED BLOOD COUNT 3.34 x10^6/uL (3.82-5.3); RED CELL DISTRIBUTION WIDTH 19.6 % (9.6-15.2)
[2019-07-22 04:46] LABS: ANION GAP 4 mmol/L (5-15); CHLORIDE 104 mmol/L (98-107); CREATININE 1.02 mg/dL (0.55-1.02)
[2019-07-22] MEDS: PANTOPRAZOLE 40 MG IV IVPush SCH (06:26)
[2019-07-22] MEDS: VALPROATE SODIUM 250 MG/5 ML UDC PO/NG SCH (09:00)
[2019-07-22] MEDS: CLOPIDOGREL 75 MG TABLET PO SCH (09:00)
[2019-07-22] MEDS: FUROSEMIDE 20 MG/2 ML IV SCH (09:36)
[2019-07-22] MEDS: SODIUM CHLORIDE FLUSH 10ML SYR IVF SCH (09:37)
[2019-07-22] MEDS: THIAMINE 200 MG in SODIUM CHLORIDE 0.9% 50 ML IV SCH (09:37)
[2019-07-22 09:50] VITALS: BP 143/63
[2019-07-22] MEDS ORDERED: VALPROATE SODIUM 500 MG in DEXTROSE 5% 100 ML IV SCH ×2 (10:00→16:00)
[2019-07-22] MEDS ORDERED: ACETAMINOPHEN 325 MG TABLET PO PRN (10:30)
[2019-07-22] MEDS ORDERED: LORazepam 2 MG/ML, 1ML IVPush PRN (10:30)
[2019-07-22] MEDS ORDERED: MORPHINE SULFATE 4 MG/ML, 1ML IVPush PRN ×3 (10:30)
[2019-07-22] MEDS ORDERED: ONDANSETRON 2MG/ML, 2ML IVPush PRN (10:30)
[2019-07-22] MEDS ORDERED: ATROPINE OPHTH SOLN 1%, 5ML BC PRN (10:30)
[2019-07-22] MEDS ORDERED: SCOPOLAMINE 1MG PATCH TD SCH (10:30)
[2019-07-22] MEDS: VALPROATE SODIUM 500 MG in DEXTROSE 5% 100 ML IV SCH ×3 (10:52→23:01)
[2019-07-22] MEDS: MEROPENEM 500 MG in SODIUM CHLORIDE 0.9% 100 ML IV SCH ×2 (13:00→21:17)
[2019-07-22] MEDS: LACTOBACILLUS CHEW TABLET PO SCH ×2 (16:33→21:18)
[2019-07-22] MEDS ORDERED: FUROSEMIDE 20 MG/2 ML IV SCH (17:00)
[2019-07-22 18:49] VITALS: BP 125/63
[2019-07-23 00:43] VITALS: BP 101/49
[2019-07-23] MEDS: HEPARIN 5,000 UNITS/ML, 1ML SQ SCH ×3 (03:01→19:48)
[2019-07-23] MEDS: MEROPENEM 500 MG in SODIUM CHLORIDE 0.9% 100 ML IV SCH ×3 (05:02→19:48)
[2019-07-23 05:28] LABS: BASOPHILS # (AUTO) 0.04 x10^3/uL (0-0.1); BASOPHILS % (AUTO) 1 % (0-1); EOSINOPHILS # (AUTO) 0.18 x10^3/uL (0-0.4); EOSINOPHILS % (AUTO) 2 % (1-7); LYMPHOCYTES # (AUTO) 2.46 x10^3/uL (1-3.4); LYMPHOCYTES % (AUTO) 32 % (22-44); MD NO; MEAN CORPUSCULAR HEMOGLOBIN 30.3 pg (27.0-34.8); MEAN CORPUSCULAR HGB CONC 32.8 g/dL (32.4-35.8); MEAN CORPUSCULAR VOLUME 92.3 fL (80-100); MONOCYTES # (AUTO) 0.79 x10^3/uL (0.2-0.8); MONOCYTES % (AUTO) 10 % (2-9); NEUTROPHILS # (AUTO) 4.21 x10^3/uL (1.8-6.8); NEUTROPHILS % (AUTO) 55 % (42-75); PLATELET COUNT 190 x10^3/uL (130-400); RED BLOOD COUNT 3.38 x10^6/uL (3.82-5.3); RED CELL DISTRIBUTION WIDTH 19.2 % (9.6-15.2)
[2019-07-23 05:29] LABS: ANION GAP 5 mmol/L (5-15); CALCIUM 8.6 mg/dL (8.5-10.1); CHLORIDE 104 mmol/L (98-107); CREATININE 1.04 mg/dL (0.55-1.02)
[2019-07-23] MEDS ORDERED: PANTOPRAZOLE 40MG TABLET PO SCH (06:00)
[2019-07-23] MEDS: LACTOBACILLUS CHEW TABLET PO SCH ×4 (06:43→21:43)
[2019-07-23] MEDS ORDERED: ACETAMINOPHEN 325 MG TABLET PO PRN (07:30)
[2019-07-23 07:49] VITALS: BP 124/72
[2019-07-23] MEDS ORDERED: PANTOPRAZOLE 40 MG IV IVPush SCH (09:00)
[2019-07-23] MEDS: CLOPIDOGREL 75 MG TABLET PO SCH (10:19)
[2019-07-23] MEDS: THIAMINE 100 MG in SODIUM CHLORIDE 0.9% 50 ML IV SCH ×2 (10:35→12:35)
[2019-07-23] MEDS: VALPROATE SODIUM 500 MG in DEXTROSE 5% 100 ML IV SCH ×3 (10:41→21:17)
--- NOTE | 2019-07-23 11:10 | NUR ---
Diet: PUREE/ NTL Discharge recommendations: Back to detention with hospice Addendum: 07/23/19 at [address] Amended: Links added.
[2019-07-23 13:17] VITALS: BP 124/70
[2019-07-23 19:06] VITALS: BP 157/83
[2019-07-23] MEDS ORDERED: ATORVASTATIN 80 MG TABLET PO SCH (21:00)
[2019-07-23 21:14] LABS: OCCULT BLOOD NEGATIVE (NEGATIVE)
[2019-07-24 00:14] VITALS: BP 129/72
[2019-07-24 05:25] LABS: CHLORIDE 107 mmol/L (98-107)
[2019-07-24 05:28] LABS: ANION GAP 6 mmol/L (5-15); BASOPHILS # (AUTO) 0.04 x10^3/uL (0-0.1); BASOPHILS % (AUTO) 1 % (0-1); CALCIUM 8.6 mg/dL (8.5-10.1); CREATININE 0.79 mg/dL (0.55-1.02); EOSINOPHILS # (AUTO) 0.15 x10^3/uL (0-0.4); EOSINOPHILS % (AUTO) 3 % (1-7); LYMPHOCYTES # (AUTO) 1.56 x10^3/uL (1-3.4); LYMPHOCYTES % (AUTO) 26 % (22-44); MD NO; MEAN CORPUSCULAR HEMOGLOBIN 30.6 pg (27.0-34.8); MEAN CORPUSCULAR HGB CONC 33.3 g/dL (32.4-35.8); MEAN PLATELET VOLUME 9.2 fL (7.4-10.4); MONOCYTES # (AUTO) 0.78 x10^3/uL (0.2-0.8); MONOCYTES % (AUTO) 13 % (2-9); NEUTROPHILS % (AUTO) 57 % (42-75); PLATELET COUNT 207 x10^3/uL (130-400); RED BLOOD COUNT 3.29 x10^6/uL (3.82-5.3); RED CELL DISTRIBUTION WIDTH 19.6 % (9.6-15.2)
[2019-07-24 05:34] LABS: % IRON SATURATION 30 % (20-55); IRON LEVEL 67 mcg/dL (50-170); TOTAL IRON BINDING CAPACITY 224 mcg/dL (250-450)
[2019-07-24] MEDS: MEROPENEM 500 MG in SODIUM CHLORIDE 0.9% 100 ML IV SCH ×2 (05:44→10:51)
[2019-07-24] MEDS: LACTOBACILLUS CHEW TABLET PO SCH ×2 (05:56→08:37)
[2019-07-24] MEDS: HEPARIN 5,000 UNITS/ML, 1ML SQ SCH (05:57)
[2019-07-24 07:20] VITALS: BP 126/58
[2019-07-24] MEDS ORDERED: ACET325T26 PO (08:30)
[2019-07-24] MEDS ORDERED: ACID1TAB7 PO (08:30)
[2019-07-24] MEDS ORDERED: VALP250C59 PO (08:30)
[2019-07-24] MEDS: CLOPIDOGREL 75 MG TABLET PO SCH (08:37)
[2019-07-24] MEDS: VALPROATE SODIUM 500 MG in DEXTROSE 5% 100 ML IV SCH (08:37)
[2019-07-24] MEDS: THIAMINE 100 MG in SODIUM CHLORIDE 0.9% 50 ML IV SCH (10:51)
== END 2019-07-24 11:47 | disposition hospice, home (50) | DRG 870 ==
LOC: ED 17:17 → EDIP 19:02 → CCU 21:17 → 3N 07-22 11:34
PROVIDERS: ADMIT Internal Medicine; ATTEND Internal Medicine
PROC: 0T9B70Z Drainage of Bladder with Drainage Device, Via Natural or Artificial Opening (ICD-10-PCS; 2019-07-16)
PROC: 0BH18EZ Insertion of Endotracheal Airway into Trachea, Via Natural or Artificial Opening Endoscopic (ICD-10-PCS; principal; 2019-07-17)
PROC: 5A1955Z Respiratory Ventilation, Greater than 96 Consecutive Hours (ICD-10-PCS; 2019-07-17)
PROC: 30233N1 Transfusion of Nonautologous Red Blood Cells into Peripheral Vein, Percutaneous Approach (ICD-10-PCS; 2019-07-17)
DX: A41.59 Other Gram-negative sepsis (principal); G92 Toxic encephalopathy; N17.0 Acute kidney failure with tubular necrosis; I63.9 Cerebral infarction, unspecified; J96.00 Acute respiratory failure, unspecified whether with hypoxia or hypercapnia; E87.0 Hyperosmolality and hypernatremia; K92.2 Gastrointestinal hemorrhage, unspecified; N39.0 Urinary tract infection, site not specified; Q21.1 Atrial septal defect; Z16.12 Extended spectrum beta lactamase (ESBL) resistance; Z99.11 Dependence on respirator [ventilator] status; D63.8 Anemia in other chronic diseases classified elsewhere; E66.9 Obesity, unspecified; E83.42 Hypomagnesemia; E88.09 Other disorders of plasma-protein metabolism, not elsewhere classified; F09 Unspecified mental disorder due to known physiological condition; F25.9 Schizoaffective disorder, unspecified; G40.909 Epilepsy, unspecified, not intractable, without status epilepticus; Z66 Do not resuscitate; B96.1 Klebsiella pneumoniae [K. pneumoniae] as the cause of diseases classified elsewhere; I10 Essential (primary) hypertension; I49.8 Other specified cardiac arrhythmias; R79.89 Other specified abnormal findings of blood chemistry; H47.619 Cortical blindness, unspecified side of brain; R13.10 Dysphagia, unspecified; Z51.5 Encounter for palliative care; Z74.01 Bed confinement status; Z79.02 Long term (current) use of antithrombotics/antiplatelets; Z86.73 Personal history of transient ischemic attack (TIA), and cerebral infarction without residual deficits; Z68.31 Body mass index [BMI] 31.0-31.9, adult; Z91.14 Patient's other noncompliance with medication regimen; Z87.440 Personal history of urinary (tract) infections; Z98.1 Arthrodesis status; Z90.49 Acquired absence of other specified parts of digestive tract; Z79.84 Long term (current) use of oral hypoglycemic drugs
CPT/HCPCS: 36415; 36430; 36600; 70450; 70551; 71045; 71260; 74018; 74230; 80048; 80053; 80164; 80307; 81001; 82140; 82247; 82248; 82272; 82533; 82550; 82803; 82962; 83540; 83550; 83605; 83615; 83735; 84100; 84145; 84439; 84443; 84478; 84481; 84484; 85014; 85018; 85025; 85379; 85610; 85730; 86140; 86850; 86900; 86923; 87040; 87070; 87077; 87081; 87086; 87186; 87205; 93005; 94002; 94003; 94150; 95819; 96365; 99285; G0378; J0696; J1100; J1644; J1953; J2185; J3010; J3411; Q9967; C9113; J0330; J0360; J0834; J1940; J3475; J3480; J7030; J7120; P9016